=== PATIENT | female | born 1940 | race Caucasian/White ===

== ENCOUNTER → 2024-09-14 10:10 | Outpatient (REF) | payer MEDICARE, OTHER, SELFPAY | LOC: HWRCS 10:10 | PROVIDERS: ATTENDING PHYSICIAN Internal Medicine Cardiovascular Disease; FAMILY PHYSICIAN Family Medicine | DX: I49.3 Ventricular premature depolarization (principal) | CPT/HCPCS: 93306 ==

== ENCOUNTER 2024-09-17 22:09 | Inpatient (IN) | payer MEDICARE, OTHER, SELFPAY ==
[2024-09-17] VITALS (8 sets, daily range): BP systolic 99–145; BP diastolic 70–104; BMI 22.3; BMI 21.4
[2024-09-17 17:43] LABS: % Basophils 0.6 % (0-2); % Immature Granulocytes 0.4 % (0-0.5); % Lymphocytes 24.5 % (20.5-51.1); % Monocytes 6.3 % (1.7-9.3); % Neutrophils 67.2 % (42.2-75.2); Absolute Basophils 0.1 10^3/uL (0-0.2); Absolute Eosinophils 0.1 10^3/uL (0-0.7); Absolute Lymphocytes 2.4 10^3/uL (1.2-3.4); Absolute Monocytes 0.6 10^3/uL (0.1-0.6); Absolute Neutrophils 6.6 10^3/uL (1.4-6.5); Mean Corp Hgb Conc. 33.3 g/dL (33.0-37.0); Mean Corpuscular Hgb 32.2 pg (27.0-31.0); Mean Corpuscular Volume 96.5 fL (81.0-99.0); Nucleated Red Blood Cells % 0 %; Platelet Count 283 10^3/uL (130-400); Red Blood Cell Count 4.04 10^6/uL (4.20-5.40); White Blood Cell Count 9.8 10^3/uL (4.8-10.8)
[2024-09-17 17:48] LABS: ALT (SGPT) 24 U/L (0-35); AST (SGOT) 24 U/L (14-36); Albumin 4.8 g/dl (3.5-5.0); Alkaline Phosphatase 68 U/L (38-126); Blood Urea Nitrogen 44 mg/dl (7-17); Calcium 9.6 mg/dl (8.4-10.2); Carbon Dioxide 26 mmol/L (22-30); Chloride 99 mmol/L (98-107); Glucose 107 mg/dl (70-99); Potassium 4.6 mmol/L (3.5-5.1); Sodium 138 mmol/L (135-145); Total Bilirubin 1.4 mg/dl (0.2-1.3); Total Protein 6.9 g/dl (6.3-8.2); eGFR 44.36
--- NOTE | 2024-09-17 18:10 | ED.GENMED ---
History of Present Illness
General
Chief Complaint: Breathing Problem
Source: patient and spouse
Exam Limitations: none
Time Seen by Provider: 09/17/24 17:57
Nursing documentation reviewed up to this point in time: agreed with
History of Present Illness
History of Present Illness:
84-year-old female presents emergency room complaining of shortness of breath worse over the past 2 days. She has a history of COPD. She denies a history of atrial fibrillation.
Past History
Past History
ED Past Medical History: COPD and Other (Mitral valve prolapse)
ED Past Surgical History: Cardiac (Mitral valve surgery) and Orthopedic (Right hip)
Social History
Tobacco: Non-smoker
Alcohol: None
Drug: None
Personal:
Living: with family
Employment: Retired
Review of Systems
Review of Systems
Allergies reviewed?: Yes
All Other Systems: Not applicable
Constitutional: Reports no symptoms
EENT: Reports no symptoms
Respiratory: Reports cough and trouble breathing
Cardiac: Reports no symptoms; Denies chest pain
ABD/GI: Reports no symptoms
: Reports no symptoms
Musculoskeletal: Reports no symptoms
Skin: Reports no symptoms
Neurological: Reports no symptoms
Endocrine: Reports no symptoms
Hematologic/Lymphatic: Reports no symptoms
Psychiatric: Reports no symptoms
Phy Exam
Physical Exam
Physical Exam:
Physical Exam
General: Afebrile
Neck: supple. no meningeal signs. normal posterior pharynx
Heart: s1/s2 tachycardia, no murmur. equal radial
pulses.
HEENT: Pupils equal round reactive to light, EOMI
Lungs: Moderate respiratory distress. Decreased breath sounds bilaterally
Abdomen: normal bowel sounds. not tender. no CVAT
Neuro: alert and oriented. no focal neurological deficits cranial nerves II through XII intact
Skin: no rash
Psychiatric: well kept. interactive and cooperative
Extremities: no edema. no calf tenderness. negative homans. good distal pulses
Scores
Heart Failure Risk
Heart Failure Risk Score: Yes
History of Stroke or TIA: No
History of intubation for respiratory distress: No
Heart rate on ED arrival >/= 110: Yes
SaO2 <90% on arrival on room air: No
HR >/=110 during 3min walk test (or too ill to perform test): Yes
ECG has acute ischemic changes: No
Urea >/=12mmol/L (BUN 33.6mg/dL): Yes
Serum CO2>/=35mmol/L: No
Troponin I or T elevated to CO Level (0.4mg/dL): No
NT-proBNP >/=5,000ng/L (5,000pg/ml): Yes
HF Risk Score: 4
Admission Status: HIGH RISK 26.1% Consider SNF treatment or admission to hospital
Course
Orders/Labs/Results
Orders:
Orders
09/17/24 17:17
Electrocardiogram (*1) Urgent
Reason for Study: Shortness of Breath
EKG- Treatment ONCE
09/17/24 17:21
Complete Blood Count/With Diff Urgent
Comprehensive Metabolic Panel Urgent
09/17/24 18:07
Diltiazem 125 mg/125 ml Nss [Cardizem] 125 mg in 125 ml IV NOW
Initial dose in mg/hr, then titrate:: 5
Titrate to keep:: Heart rate 80-100 bpm
Titrate by mg/hr:: 5 mg/hr
Frequency of titrations (minutes):: 15
Maximum dose in mg/hr:: 15
Diltiazem HCl [Cardizem] 5 mg IV NOW STA
Ipratropium/Albuterol Sulfate [Duoneb] 3 ml INH R NOW STA
CR Chest Portable - 1 View Urgent
Comment:
Reason For Exam: short of breath
Reason Study Needs to be Portable: Patient Unstable
09/17/24 18:24
NT-proBNP Urgent
Troponin I Urgent
09/17/24 20:13
Dexamethasone Sod Phosphate [Decadron] 10 mg IV NOW STA
Furosemide [Lasix] 40 mg IV NOW STA
09/17/24 21:33
Admit/Transfer Patient As Directed
Co-Sign Provider:
Level of Care: Inpatient admission
Assign to:: IVU
Physician / Group: Roland Rocha
Diagnosis: A-fib RVR/Heart failure
Reason for Hospitalization: A-fib RVR/Heart failure
Expected length of stay greater than two midnights?: Yes
ELOS- Estimated Length of Stay in days: 3
I certify the patient meets the requirements for IP care: Yes
PRN Pain Medication Management As Directed
May give lesser potent ordered pain med per pt: Yes
preference::
Protocol:: Medication orders for pain may be administered in a
manner that supports deferring to patient preference
when the pt is:
- Requesting an ordered lesser potent pain medication.
Least to most potent pain medications are defined
as: acetaminophen < NSAID < tramadol < opioids
(morphine, oxycodone, hydromorphone).
- Requesting a lesser dose of the same medication IF
ORDERED.
- Requesting a less intrusive route of administration
if both routes are prescribed by the provider (PO <
IV).
09/17/24 21:35
Code Status As Directed
Resuscitation Status: Do not resuscitate
Reached after discussion with pt or family/Healthcare POA: Yes
Decision communicated with: patient
DNR Bracelet Application ONCE
09/17/24 21:55
COVID-19 Antigen Urgent
Source: Nasal Swab
Influenza A+B Rapid Molecular Urgent
YANY Source: Nasal Swab
Specimen Description:
Abnormal Lab Results
09/17/24
17:21
RBC 4.04 L 10^6/uL
(4.20-5.40)
MCH 32.2 H pg
(27.0-31.0)
MPV 11.0 H fL
(7.4-10.4)
Absolute Neuts (auto) 6.6 H 10^3/uL
(1.4-6.5)
BUN 44 H mg/dl
(7-17)
Creatinine 1.2 H mg/dL
(0.6-1.0)
Glucose 107 H mg/dl
(70-99)
Total Bilirubin 1.4 H mg/dl
(0.2-1.3)
09/17/24 17:21
09/17/24 17:21
Vital Signs
Initial and Last Documented VS:
Initial Vital Signs
Temp Pulse Resp BP Pulse Ox
97.5 F 74 16 142/70 97
09/17/24 17:11 09/17/24 17:11 09/17/24 17:11 09/17/24 17:11 09/17/24 17:11
Last Documented Vital Signs
Temp Pulse Resp BP Pulse Ox
97.5 F 86 22 119/84 96
09/17/24 17:11 09/17/24 22:15 09/17/24 22:15 09/17/24 22:00 09/17/24 21:45
MDM/Problems Addressed
Differential Diagnosis Includes:
Pneumonia, CHF, COPD
MDM/Problems Addressed:
84-year-old female with CHF and COPD exacerbation. IV Lasix, IV Decadron and DuoNebs given, rapid A-fib. Admit to hospitalist.
Chronic conditions affecting care: Cardiomyopathy, Arrhythmia and COPD
Acute Exacerbation and/or Progression of Chronic Illness: Cardiomyopathy, Arrhythmia and COPD
*Radiology
Radiology exam reviewed: radiology read reviewed (Chest x-ray cardiomegaly, no infiltrate)
*Pulse Oximetry
Patient hypoxic: no
*EKG
Interpreted by ED Provider?: Yes
EKG Intrepretation Date: 09/17/24
EKG Intrepretation Time: 17:27
Interpretation: abnormal
Comparison EKG: changes noted
Heart Rate: 122
Rate: tachycardiac
Rhythm: a-fib
[place]: left axis deviation
Interval: normal interval
QRS Pattern: normal QRS
Ischemia: no ischemia
*Chief Privacy Officer Interpretation
Rate: tachycardiac
Interpretation: abnormal
Heart Rate: 120
Rhythm: a-fib
*Critical Care Note
Total Time (30-74mins, 75-104mins- exclusive of procedures): 30
comment:
Critical care statement: A total of 30 minutes of critical care time was provided for this patient. This includes management of unstable vital signs, evaluation of the patient at bedside, reviewing the patient's pertinent medical records, discussion
with consultants, review of old EKGs and review of pertinent medical records. This time with separate from time utilized to perform the aforementioned documented procedures
ED Attending Note
-
Portions of this chart may have been created with voice recognition software.� Occasional wrong word or��sound alike� substitutions may have occurred due to the inherent limitations of voice recognition software.
Discharge Plan
Departure
Patient Disposition: Admit
Date of Disposition: 09/17/24
Time of Disposition: 20:14
Admit to: IMU
Presentation/result/management discussed w/ accepting MD/DO: Hospitalist
Patient with high blood pressure during this ER visit?: No
Condition: Good
Discharge Problem:
Acute exacerbation of CHF (congestive heart failure), Acute exacerbation of chronic obstructive pulmonary disease, Atrial fibrillation with rapid ventricular response
Interventions
Interventions:
*Risk Screen - Suicide Last Done: 09/17/24 17:17
*General Assessment Last Done: 09/17/24 18:17
*Neglect/Abuse Screening Last Done: 09/17/24 17:17
ED- Fall Risk Assessment Last Done: 09/17/24 18:17
*ED COVID-19 Vaccine History Last Done: 09/17/24 17:16
ED- Cardiac Assessment Last Done: 09/17/24 18:17
ED- Pulmonary Assessment Last Done: 09/17/24 18:17
[2024-09-17] MEDS: DUONEB 3 ML INH (18:27)
[2024-09-17] MEDS: CARDIZEM 5 MG IV (18:27)
[2024-09-17] MEDS: CARDIZEM 125 IV (18:27)
[2024-09-17 19:47] LABS: NT-proBNP 6300 pg/ml
[2024-09-17] MEDS: DECADRON 10 MG IV (20:36)
[2024-09-17] MEDS: LASIX 40 MG IV (20:37)
--- NOTE | 2024-09-17 20:40 | HPS.HSE ---
Family Physician
-
Family Physician: Daniel Mccormack
Chief Complaint
-
shortness of breath
History of Present Illness
Patient is a 84-year-old female with past medical history significant for COPD, moderate pulmonary hypertension, hypertension and mitral valve prolapse who presented to [place] ED for evaluation increased shortness of breath with exertion.
Patient states over past 2 days she has noticed increased shortness of breath when reaching up to cabinet or bending over. Generally resolves with rest. She reports new dry cough that has been intermittent. Patient reports intermittent bilateral
lower extremity edema that resolves with furosemide. She states she was on furosemide in past for same thing and doctor prescribed again just recently for edema and she has taken for a few days and edma now resolved. Patient denies any fever,
chills, chest pain, palpitations, nausea, vomiting, constipation, diarrhea or urinary symptoms.
Medical History
Past Medical History
Past Medical History: Reports Other
Additional Past Medical History:
COPD
moderate pulmonary hypertension
hypertension
mitral valve prolapse
Past Surgical History: Reports Other
Additional Past Surgical History:
Mitral valve repair
right hip
Social History
Tobacco: Former Smoker (1 pack per week for approximately 45 years, 5 pack year history)
Alcohol: Daily (wine nightly)
Drug: None
Personal:
Living: With Family
Employment: Retired
Family History
Family History: Not pertinent
Allergies / Home Medications
Allergies reflects when Allergies were last updated in [email or web address].
Home Medications with original date entered in [email or web address]
Allergy/Medication List:
Allergies
Allergy/AdvReac Type Severity Reaction Status Date / Time
No Known Allergies Allergy Verified 04/21/22 09:12
Home Medications
azithromycin 250 mg tablet 250 mg PO MOWEFR 03/02/22
furosemide 20 mg tablet 20 mg PO DAILY 03/02/22
albuterol sulfate 90 mcg/actuation aerosol inhaler 2 inh inhalation R Q6HPRN PRN sob 04/21/22
fluticasone propionate 50 mcg/actuation nasal spray,suspension 1 spray intranasal DAILY PRN nasal congestion 04/21/22
ipratropium 0.5 mg-albuterol 3 mg (2.5 mg base)/3 mL nebulization soln 3 ml inhalation R BID 04/21/22
aspirin 81 mg chewable tablet 81 mg PO DAILY 09/17/24
budesonide 0.5 mg/2 mL suspension for nebulization 0.5 mg inhalation R BID 09/17/24
calcium carbonate 500 mg PO DAILY 09/17/24
fluticasone furoate 200 mcg-vilanterol 25 mcg/dose inhalation powder (Breo Ellipta) 1 inh inhalation R DAILY@1200 09/17/24
losartan 50 mg tablet 50 mg PO DAILY 09/17/24
potassium 99 mg tablet 50 mg PO DAILY 09/17/24
Review of Systems
-
History Source: Patient
Constitutional: Reports No Symptoms
EENT: Reports No Symptoms
Respiratory: Reports Cough (dry intermittent) and Trouble Breathing (shortness of breath)
Cardiac: Reports No Symptoms
Abdomen/GI: Reports No Symptoms
: Reports No Symptoms
Musculoskeletal: Reports No Symptoms
Skin: Reports No Symptoms
Neurological: Reports No Symptoms
Endocrine: Reports No Symptoms
Hematologic/Lymphatic: Reports No Symptoms
Psych: Reports No Symptoms
Physical Exam
Vital Signs
Vital Signs
Temp Pulse Resp BP Pulse Ox
97.5 F 135 20 141/104 97
09/17/24 17:11 09/17/24 18:00 09/17/24 18:00 09/17/24 17:44 09/17/24 18:17
Physical Exam
General: Well Developed, Well Nourished, No Apparent Distress, Comfortable and Conversant
HEENT: NormoCephalic, Moist mucous membranes, Atraumatic, [place] Conjunctivae, Nose Appears Normal and Ears Appear Normal
Respiratory: Clear and Decreased Breath Sounds (throughout all ren)
Cardiac: S1/S2, Irregular Rhythm and Tachycardia; No Murmur, Rub or Gallop
Breast: Deferred by me
GI: Soft, Non Tender, Non Distended and Normal Bowel Sounds; No Organomegaly
Rectal: Deferred by Provider
Genito-urinary: Deferred by me
Musculoskeletal: No Clubbing, No Cyanosis and No Edema
Skin: Warm and IV/Catheter Site; No Rash
Neuro: Awake, Alert, AO x 3 and Nonfocal/grossly intact
Hematologic/Lymphatic: No Lymphadenopathy
Psych: Calm and Intact Judgment/Insight
Laboratory Results
-
09/17/24 17:21
09/17/24 17:21
Laboratory Results
Total Bilirubin 1.4 mg/dl (0.2-1.3) H 09/17/24 17:21
AST 24 U/L (14-36) 09/17/24 17:21
ALT 24 U/L (0-35) 09/17/24 17:21
Alkaline Phosphatase 68 U/L (38-126) 09/17/24 17:21
Troponin I 0.020 ng/ml 09/17/24 18:24
Data Reviewed
-
Diagnostic Radiology: Report Reviewed by me (CXR: No acute disease of the chest. Moderate cardiomegaly. Progressed Findings suggesting COPD. New Possible clip projected over the mid left cardiac shadow versus a radiopaque foreign body within the
patient. New.)
Medical Tests (Nuc Med, Echo, EKG etc): Report Reviewed by me (EKG: ATRIAL FIBRILLATION WITH RAPID VENTRICULAR RESPONSE WITH PREMATURE VENTRICULAR OR ABERRANTLY CONDUCTED COMPLEXES LEFT AXIS DEVIATION ABNORMAL ECG WHEN COMPARED WITH ECG OF
21-APR-2022 09:23, ATRIAL FIBRILLATION HAS REPLACED SINUS RHYTHM VENT. RATE HAS INCREASED BY [address] NO LONGER DEPRESSED)
Lab Data: Labs Reviewed by me (BUN 44, Creat 1.2, BNP 6300)
Impression/Plan
-
IMPRESSION/PLAN:
#A-fib with RVR
new onset
c/o shortness of breath with exertion especially if reaching up into cabinets or bending down, resolves with rest
EKG: ATRIAL FIBRILLATION WITH RAPID VENTRICULAR RESPONSE WITH PREMATURE VENTRICULAR
OR ABERRANTLY CONDUCTED COMPLEXES
LEFT AXIS DEVIATION
ABNORMAL ECG
WHEN COMPARED WITH ECG OF 21-APR-2022 09:23,
ATRIAL FIBRILLATION HAS REPLACED SINUS RHYTHM
VENT. RATE HAS INCREASED BY [address] NO LONGER DEPRESSED IN INFERIOR LEADS
- Admit to
- Consult Cardiology [facility]
- diltiazem gtt
- start Eliquis
- check Covid and Influenza
#Heart failure
BNP 6300
Echo (09/14/2024): Left ventricle: Normal size and function with an estimated ejection fraction of 50%
- continue furosemide
- consult cardiology
- daily weights
#COPD
#moderate pulmonary hypertension
c/o shortness of breath with exertion especially if reaching up into cabinets or bending down, resolves with rest
- continue albuterol, budesonide, breo, furosemide and DuoNeb PRN
#benign hypertension
- continue furosemide
- hold losartan in setting of ADAIR
#mitral valve prolapse
hx mitral valve repair
- continue aspirin
Code Status: DNR
DVT Prophylaxis: Eliquis
--- NOTE | 2024-09-17 21:41 | W.PN.UPDATE ---
Addendum entered and electronically signed by Roland Rocha MD 09/17/24 23:20:
Decided to continue Dexamethasone 4 mg q12.
Addendum entered and electronically signed by Roland Rocha MD 09/17/24 21:42:
Check COVID and flu.
Original Note:
Update Note
Progress Note Update
This is an addendum to the H&P written by Marcelle Mesa on 09/17/2024. Patient seen and examined independently with MUSIC WRITER.
84-year-old female past medical history of COPD, mitral valve prolapse status post mitral surgery, presenting with shortness of breath and dry cough worse when she bends down or lifts something up. No chest pain or dizziness. No upper respiratory
symptoms.
Patient arrived in new onset atrial fibrillation with RVR with heart rate up to 130s. Diminished air entry on examination. No wheezing or crackles.
Labs showed BNP of 6000. Creatinine 1.2 chest x-ray shows moderate cardiomegaly which is progressed. Patient had echocardiogram yesterday which showed EF of 50%, severe biatrial dilation, moderate to severe tricuspid regurgitation.
Exertional dyspnea seems more likely related to CHF exacerbation/A-fib although not overtly volume overloaded. She was started on Cardizem drip for A-fib. Given 40 IV Lasix. Will also start Eliquis. Cardiology consulted.
She was also given dexamethasone and DuoNebs for COPD exacerbation although not entirely convinced she is in COPD exacerbation. Will hold off on further steroids. Continue nebs.
Hold losartan while on Cardizem drip.
[2024-09-17 22:18] LABS: COVID-19 Antigen Negative (Negative)
--- NOTE | 2024-09-17 23:00 | PTCARENOTE ---
Patient transported to IMU via stretcher. Received verbal report over the phone from ED RN. Pt ambulated from the stretcher to the bed. Admission and assessment completed see worklist.
[2024-09-18] VITALS (14 sets, daily range): BP systolic 91–137; BP diastolic 62–89; PULSE 88–93; O2SAT 95–96; BMI 21.4
[2024-09-18 00:12] LABS: Magnesium 1.9 mg/dl (1.6-2.3)
--- NOTE | 2024-09-18 03:54 | PTCARENOTE ---
Pt AAOx3, [place]. A-fib w/ PAC's on tele. ReynaInvacio gtt running see DEC. HR 80's-90's. Pt on room air but is tachypneic and complains of SOB when ambulating. Noted bilateral lower extremity scabs otherwise skin is intact. Pt makes needs known and rings
appropriately, call abdul is within reach.
[2024-09-18 05:53] LABS: Hematocrit 38.5 % (37.0-47.0); Hemoglobin 13.1 g/dL (12.0-16.0); Mean Corpuscular Hgb 32.1 pg (27.0-31.0); Mean Corpuscular Volume 94.4 fL (81.0-99.0); Mean Platelet Volume 10.8 fL (7.4-10.4); Platelet Count 243 10^3/uL (130-400); Red Blood Cell Count 4.08 10^6/uL (4.20-5.40); Red Cell Dist. Width 13.9 % (11.5-14.5); White Blood Cell Count 5.3 10^3/uL (4.8-10.8)
[2024-09-18 06:13] LABS: Blood Urea Nitrogen 44 mg/dl (7-17); Calcium 9.6 mg/dl (8.4-10.2); Carbon Dioxide 26 mmol/L (22-30); Chloride 100 mmol/L (98-107); Estimated Creatinine Clearance 28 ml/min; Glucose 156 mg/dl (70-99); HDL Cholesterol 74 mg/dl; LDL Cholesterol, Calculated 88 mg/dl; Potassium 4.9 mmol/L (3.5-5.1); Sodium 141 mmol/L (135-145); Total Cholesterol 177 mg/dl (50-199); Triglyceride 76 mg/dl (10-149); Very Low Density Lipoprotein 15 mg/dl (0-30); eGFR 55.21
[2024-09-18] MEDS: CARDIZEM 125 IV ×2 (06:29→18:56)
[2024-09-18 06:40] LABS: TSH Reflex To Free T4 0.81 uIU/ml (0.47-4.68)
[2024-09-18] MEDS: SYMBICORT 160/4.5 MCG INHALER 2 PUFF INH ×2 (07:43→19:20)
[2024-09-18] MEDS: DUONEB 3 ML INH ×2 (07:43→19:20)
[2024-09-18] MEDS: PULMICORT 0.5 MG INH ×2 (07:43→19:20)
--- NOTE | 2024-09-18 07:43 | CON.CAR ---
Addendum entered and electronically signed by Jeffrey Mckeon DO 09/18/24 13:19:
I saw and examined the patient.
The Perinatal Coordinator's note was reviewed and I agree with the note.
Comment:
Echo 09/14/24: EF 50%, severe biatrial dilatation, s/p MitraClip with at least moderate MR and mean mitral gradient 2 mmHg, no AI, mod to sev TR and PAP 51 mmHg
Plan:
Discussed Afib including rate control, rhythm control and stroke prophylaxis.
Cont IV Cardizem and transition to oral cardizem.
Discussed rhythm control and she is agreeable to NOVA/cv. If she has recurrent AFib, will have to consider AAD vs PVI. For now, with her underlying lung disease will hold off on considering Amiodarone at this time.
Patient agreeable to start anticoagulation with Eliquis 2.5 mg BID (age 84, Cre 1.0 and wt 48 kg). Will stop aspirin to reduce bleeding risk.
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
Recent echo reviewed and EF is preserved and MV clip stable.
Cont IV lasix diuresis for HF.
HPI: Patient came to [facility] yesterday with ongoing SOB that was unresponsive to increased doses of Lasix as an outpatient and cardiology is now consulted. Patient was seen by Dr. Pearson in the office 08/28/24 and complained of SOB and SCHILLING, ECG was SR
with frequent PVCs and patient was ordered an echo. Patient was put on a regimen of Lasix 20 mg daily for 3 days without improvement. Patient then told to take Lasix 40 mg daily for 2 days and then 20 mg daily thereafter and again had no
improvement. Patient tried taking Lasix 40 mg daily over the weekend and again had no improvement. Denies palpitations. No chest pain. Came to [facility] due to increased SCHILLING to the point of SOB walking between rooms in her home. Patient was
found to be in rapid Afib in the ER and was started on Cardizem gtt.
Original Note:
Consultation
Consultation Request
Date/Time Consultation Requested: 09/17/24 at 2258
Date/Time Consultation Performed: 09/18/24 at 0743
Requesting Provider: Dr. Heller
Performing Provider: Dr. Rios
Reason for Consultation: Rapid Afib
Medical History
-
History of Present Illness:
Patient came to [facility] yesterday with ongoing SOB that was unresponsive to increased doses of Lasix as an outpatient and cardiology is now consulted. Patient was seen by Dr. Pearson in the office 08/28/24 and complained of SOB and SCHILLING, ECG was SR with
frequent PVCs and patient was ordered an echo. Patient was put on a regimen of Lasix 20 mg daily for 3 days without improvement. Patient then told to take Lasix 40 mg daily for 2 days and then 20 mg daily thereafter and again had no improvement.
Patient tried taking Lasix 40 mg daily over the and again had no improvement. Denies palpitations. No chest pain. Came to [facility] due to increased SCHILLING to the point of SOB walking between rooms in her home. Patient was found to be
in rapid Afib in the ER and was started on Cardizem gtt.
PMH:
Moderate MR s/p MitraClip at [place] 10/2022
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
COPD with moderate PHTN
HTN
Past Medical History
Past Medical History: Other (in HPI)
Past Surgical History: Cardiac (MitraClip at [place] 10/2022) and Orthopedic
Social History
Tobacco: Former Smoker
Alcohol: Daily
Drug: None
Personal:
Living: With Family
Family History
Family History: Cancer and Diabetes
Allergies / Home Medications
Allergy/AdvReac Type Severity Reaction Status Date / Time
No Known Allergies Allergy Verified 04/21/22 09:12
�Medication �Instructions �Recorded �Confirmed �Type
azithromycin 250 mg tablet 250 mg PO MOWEFR 03/02/22 09/17/24 History
furosemide 20 mg tablet 20 mg PO DAILY 03/02/22 09/17/24 History
albuterol sulfate 90 mcg/actuation 2 inh inhalation R Q6HPRN PRN sob 04/21/22 09/17/24 History
aerosol inhaler
fluticasone propionate 50 1 spray intranasal DAILY PRN nasal 04/21/22 09/17/24 History
mcg/actuation nasal congestion
spray,suspension
ipratropium 0.5 mg-albuterol 3 mg 3 ml inhalation R BID 04/21/22 09/17/24 History
(2.5 mg base)/3 mL nebulization
soln
aspirin 81 mg chewable tablet 81 mg PO DAILY 09/17/24 09/17/24 History
budesonide 0.5 mg/2 mL suspension 0.5 mg inhalation R BID 09/17/24 09/17/24 History
for nebulization
calcium carbonate 500 mg PO DAILY 09/17/24 09/17/24 History
fluticasone furoate 200 1 inh inhalation R DAILY@1200 09/17/24 09/17/24 History
mcg-vilanterol 25 mcg/dose
inhalation powder (Breo Ellipta)
losartan 50 mg tablet 50 mg PO DAILY 09/17/24 09/17/24 History
potassium 99 mg tablet 50 mg PO DAILY 09/17/24 09/17/24 History
Review of Systems
-
History Source: Patient
All other systems: Negative unless noted
Physical Exam
Vital Signs
Temp Pulse Resp BP Pulse Ox
97.5 F 78 17 109/64 94
09/18/24 03:33 09/18/24 07:33 09/18/24 07:33 09/18/24 06:00 09/18/24 07:33
GEN: NAD. AAOx3, tremor
HEENT: EOMI, MMM
LUNGS: RA. CTA B/L, no wheezes or rales
CV: Reg, S1/S2, 3/6 ASM
ABD: soft, BS+, NT, ND
EXT: No clubbing, cyanosis, lesions or edema B/L
NEURO: Gross non-focal
SKIN: Warm, dry and pink. No rash
Lab Results
09/18/24 05:37
09/18/24 05:37
Troponin I 0.020 ng/ml 09/17/24 18:24
Nqe-G-Fmfqjzfksdo Pept 6300 pg/ml 09/17/24 18:24
Impression / Plan
-
PCP: Dr. Mccormack
Cardiology: Dr. BASSEM Pearson
Impression:
Admitted with SOB and new Afib 09/17/24
Acute HFpEF
Newly diagnosed Afib with RVR 09/17/24
New start to Eliquis OAC 09/18/24
Moderate MR s/p MitraClip at [place] 10/2022
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
COPD with moderate PHTN
HTN
Echo 09/14/24: EF 50%, severe biatrial dilatation, s/p MitraClip with at least moderate MR and mean mitral gradient 2 mmHg, no AI, mod to sev TR and PAP 51 mmHg
Plan:
-Patient came to [facility] yesterday with ongoing SOB that was unresponsive to increased doses of Lasix as an outpatient and cardiology is now consulted. Patient was seen by Dr. Pearson in the office 08/28/24 and complained of SOB and SCHILLING, ECG was SR with
frequent PVCs and patient was ordered an echo. Patient was put on a regimen of Lasix 20 mg daily for 3 days without improvement. Patient then told to take Lasix 40 mg daily for 2 days and then 20 mg daily thereafter and again had no improvement.
Patient tried taking Lasix 40 mg daily over the weekend and again had no improvement. Denies palpitations. No chest pain. Came to [facility] due to increased SCHILLING to the point of SOB walking between rooms in her home. Patient was found to be
in rapid Afib in the ER and was started on Cardizem gtt.
-Patient with newly diagnosed Afib in RVR. We talked about pathophysiology of Afib and how her h/o MR and MitraClip play a role.
-ECG and tele reviewed by me and patient remains in Afib with RVR despite Cardizem gtt overnight. Would continue Cardizem gtt for now and plan on NOVA/CV in AM. Explained NOVA/CV procedure and patient is agreeable. Patient previously had TEEs leading
up to MitraClip and no reported issues with that procedure.
-Discussed that pending success of CV could consider adding AAD in the form of amiodarone or possibly Tikosyn given h/o lung disease.
-Patient agreeable to start OAC. Eliquis 2.5 mg BID (age 84, Cre 1.0 and wt 48 kg) started 09/18/24 AM. Will stop aspirin.
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
-No need to repeat TTE.
-Suspect acute HF due to rapid Afib. pro-BNP 6300 which is her highest on record. Agree with Lasix 40 mg IV BID. Prior to 08/28/24 office visit the patient was not taking a loop diuretic on a daily basis, patient will likely need a daily Lasix dose
at d/c.
[2024-09-18] MEDS: LASIX 20 MG PO (08:22)
[2024-09-18] MEDS: LOW STRENGTH ASPIRIN 81 MG PO (08:22)
[2024-09-18] MEDS: ELIQUIS 2.5 MG PO ×2 (08:22→20:24)
[2024-09-18] MEDS: OSCAL CAL 500 500 MG PO (08:22)
[2024-09-18] MEDS: DECADRON 4 MG IV ×2 (08:23→20:24)
--- NOTE | 2024-09-18 08:36 | W.PN.HOSP.TC ---
Today's Communication/Plan
-
change lasix from PO to IV 40 mg BID
CM to avalos Elirachis
await cards input
Assessment / Plan
Assessment / Plan
pt is an 84 year old female
new onset atrial fibrillation with rapid response--pt cannot feel her heart racing--cont cardizem drip--echo just done 09/14/24, would not repeat--CM to bailey negron (started by admitting team)
acute exacerbation of HFpEF-- pro BNP 6300--cont IV lasix BID--await cards--daily weights, I/Os
COPD with mod pulm hypertension--follows with Dr. Roberts--consider pulm consult--for now cont IV decadron but low threshold to stop steroids--cont nebs
essential HTN--cont meds with holding parameters
ADAIR? -- doesn't quite meet strict criteria (1.2 to 1.0)--follow with diuresis
hx of mitral valve prolapse--s/p repair in past--cont asa
DVT proph--CM to [facility] Suman
code status -- DNR
Anticipated Discharge: > 48 hours
Subjective/Interval History
-
Date of Service: September 18, 2024
pt still SOB joe with moving around
Objective Data
-
Labs:
Laboratory Results
09/18/24
05:37
WBC 5.3
Hgb 13.1
Hct 38.5
Plt Count 243
Sodium 141
Potassium 4.9
Chloride 100
Carbon Dioxide 26
BUN 44 H
Creatinine 1.0
Glucose 156 H
Calcium 9.6
Vital Signs:
max temp for 24 hours
09/17/24
23:09
Temp 97.6 F
Vital Signs
Temp Pulse Resp BP Pulse Ox
97.5 F 98 17 105/79 94
09/18/24 03:33 09/18/24 08:22 09/18/24 07:33 09/18/24 08:22 09/18/24 07:33
I&O
09/17/24 09/18/24 09/19/24
06:59 06:59 06:59
Output Total 230 / 230
Balance -230 / -230
Review of Systems
-
All other systems: Reviewed and negative
Respiratory: Reports Trouble Breathing
Cardiac: Denies Palpitations (cannot feel heart racing)
Physical Exam
-
General: Well Developed, Well Nourished and No Apparent Distress
HEENT: Normocephalic and Atraumatic; Negative Oxygen
Respiratory: Decreased Breath Sounds
Cardiac: Irregular Rhythm
GI: Soft, Nontender, Nondistended and Normal Bowel Sounds
Musculoskeletal: No Clubbing, No Cyanosis and No Edema
Skin: Warm
Neuro: Awake
Psych: Calm
--- NOTE | 2024-09-18 10:00 | PTCARENOTE ---
Assumed care of patient this morning with earl Foote RN. Now report given to JADE Hewitt.
[2024-09-18] MEDS: LASIX 20 MG IV (10:33)
--- NOTE | 2024-09-18 10:48 | CM ---
Patient seen at bedside. Patient states that she lives with her in [place]. Patient has a first floor set up. Patient PCP is Dr Mccormack and she uses the [facility] in [place]. Patient stated that she has a nebulizer at home and that she has
not had any VN or DME since Hip replacement in 2011. Patient plan is for discharge home with no needs. CM will continue to follow for discharge planning needs.
Plan; home with Vn vs home with no needs.
--- NOTE | 2024-09-18 10:58 | PTCARENOTE ---
patient remains on cardizem gtt @10 ml/hr. afib with HR 110s on the monitor. labored breathing and increased RR with ambulation. patient c/o RFA pain after INT removed. warm compress provided. family at bedside. cont to monitor
--- NOTE | 2024-09-18 14:29 | PTCARENOTE ---
Assumed care of pt upon tsf from IMU. Pt arrives on unit awake and alert, Ox3. VSS, CM shows AF 80-90's, POX 93-96% on RA. Cardizem infusing through Lfa at 10 mg/hr. Pt offers no c/o pain or discomfort. Plan for NOVA/CV in am.
[2024-09-18] MEDS: LASIX 40 MG IV (16:23)
--- NOTE | 2024-09-18 16:37 | CM ---
priced eliquis 2.5 mg BID at [facility] in [place], [place]- her copay is $212 for september (she is ion the [facility]ut hole).
[2024-09-18] MEDS: TYLENOL 650 MG PO (16:46)
[2024-09-18] MEDS: ROBITUSSIN 100 MG PO (20:58)
--- NOTE | 2024-09-18 23:48 | PTCARENOTE ---
Received patient at change of shift. Afib on the monitor, HR in the 80s. VSS. Cardizem infusing as per protocol, see DEC. Pt complains of frequent cough, PRN cough medicine administered as per DEC. Call abdul within reach.
[2024-09-19] VITALS (11 sets, daily range): BP systolic 107–146; BP diastolic 57–81; BMI 21.7
[2024-09-19 03:37] LABS: Hematocrit 34.5 % (37.0-47.0); Hemoglobin 12.2 g/dL (12.0-16.0); Mean Corp Hgb Conc. 35.4 g/dL (33.0-37.0); Mean Corpuscular Hgb 32.7 pg (27.0-31.0); Mean Corpuscular Volume 92.5 fL (81.0-99.0); Platelet Count 257 10^3/uL (130-400); Red Blood Cell Count 3.73 10^6/uL (4.20-5.40); Red Cell Dist. Width 13.9 % (11.5-14.5); White Blood Cell Count 11.8 10^3/uL (4.8-10.8)
[2024-09-19 04:06] LABS: ALT (SGPT) 26 U/L (0-35); AST (SGOT) 26 U/L (14-36); Albumin 4.6 g/dl (3.5-5.0); Alkaline Phosphatase 63 U/L (38-126); Blood Urea Nitrogen 53 mg/dl (7-17); Calcium 9.3 mg/dl (8.4-10.2); Carbon Dioxide 21 mmol/L (22-30); Chloride 93 mmol/L (98-107); Estimated Creatinine Clearance 20 ml/min; Glucose 169 mg/dl (70-99); Magnesium 1.9 mg/dl (1.6-2.3); Potassium 4.5 mmol/L (3.5-5.1); Sodium 133 mmol/L (135-145); Total Bilirubin 1.9 mg/dl (0.2-1.3); Total Protein 6.7 g/dl (6.3-8.2); eGFR 36.87
[2024-09-19] MEDS: PULMICORT 0.5 MG INH ×2 (07:37→19:35)
[2024-09-19] MEDS: DUONEB 3 ML INH ×2 (07:37→19:35)
[2024-09-19] MEDS: SYMBICORT 160/4.5 MCG INHALER 2 PUFF INH ×2 (07:37→19:35)
--- NOTE | 2024-09-19 07:38 | W.PN.CARDCBS ---
Addendum entered and electronically signed by Kennedy Honeycutt MD 09/19/24 10:08:
I saw and examined the patient.
The EDITORIAL DIRECTOR or PA's note was reviewed and I agree with the note.
Comment: General: Well developed, well nourished in NAD.
Neck: Supple, no JVD, HJR, carotids +2 B/L, no bruits bilaterally.
Heart: Non displaced PMI, irregular, no murmurs, No S3, S4, no rubs.
Lungs: Scattered rhonchi
Abdomen: Normal bowel sounds, soft, non-tender, non-distended.
Extremities: No clubbing, cyanosis or edema bilaterally.
Neuro: Grossly nonfocal, awake, alert and oriented x3.
For NOVA/cardioversion later today. Hold Lasix and losartan with renal insufficiency. Consider change to oral Cardizem after cardioversion.
Original Note:
Today's Communication / Plan
-
NOVA/CV today
Hold Lasix and losartan with ADAIR, follow up BMP in AM
Likely d/c to home tomorrow if Cre improved
Impression / Plan
-
PCP: Dr. Mccormack
Cardiology: Dr. BASSEM Pearson
Impression:
Admitted with SOB and new Afib 09/17/24
Acute HFpEF
Newly diagnosed Afib with RVR 09/17/24
New start to Eliquis OAC 09/18/24
Moderate MR s/p MitraClip at [place] 10/2022
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
COPD with moderate PHTN
HTN
ADAIR
Echo 09/14/24: EF 50%, severe biatrial dilatation, s/p MitraClip with at least moderate MR and mean mitral gradient 2 mmHg, no AI, mod to sev TR and PAP 51 mmHg
Plan:
-Tele reviewed by me and remains in Afib from overnight despite Cardizem gtt. Will move forward with NOVA/CV 09/19/24
-New to Eliquis 2.5 mg BID (age 84, Cre 1.0 and wt 48 kg) started 09/18/24 AM. Outpatient dose of aspirin stopped.
-Pending success of CV could consider adding AAD in the form of amiodarone, but concerned about lung disease or possibly Tikosyn, but concerned about chronic azithromycin
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
-No need to repeat TTE.
-Weight is down 3 lbs from admission. Patient was initially ordered Lasix 40 mg IV BID, but currently no dose ordered. Eventually restart a PO dose of Lasix at time of d/c.
-ADAIR with Cre up to 1.4 by labs 09/19/24. Lasix now on hold. Outpatient dose of losartan 50 mg daily on hold.
-Patient follows with Dr. Roberts and is chronically on azithromycin and inhalers. Decadron 4 mg IV q 12 hours ordered now
HPI: Patient came to [facility] yesterday with ongoing SOB that was unresponsive to increased doses of Lasix as an outpatient and cardiology is now consulted. Patient was seen by Dr. Pearson in the office 08/28/24 and complained of SOB and SCHILLING, ECG was SR
with frequent PVCs and patient was ordered an echo. Patient was put on a regimen of Lasix 20 mg daily for 3 days without improvement. Patient then told to take Lasix 40 mg daily for 2 days and then 20 mg daily thereafter and again had no
improvement. Patient tried taking Lasix 40 mg daily over the weekend and again had no improvement. Denies palpitations. No chest pain. Came to [facility] due to increased SCHILLING to the point of SOB walking between rooms in her home. Patient was
found to be in rapid Afib in the ER and was started on Cardizem gtt.
Progress Note - Golf Caddy
Subjective
Date of Service: September 19, 2024
No palpitations, less SOB
Objective
Labs:
09/19/24 03:21
09/19/24 03:21
Labs
Hgb 12.2 g/dL (12.0-16.0) 09/19/24 03:21
Hct 34.5 % (37.0-47.0) L 09/19/24 03:21
Plt Count 257 10^3/uL (130-400) 09/19/24 03:21
Sodium 133 mmol/L (135-145) L D 09/19/24 03:21
Potassium 4.5 mmol/L (3.5-5.1) 09/19/24 03:21
BUN 53 mg/dl (7-17) H 09/19/24 03:21
Creatinine 1.4 mg/dL (0.6-1.0) H 09/19/24 03:21
Glucose 169 mg/dl (70-99) H 09/19/24 03:21
Troponins
09/17/24
18:24
Troponin I 0.020
Vital Signs and I&O:
Vital Signs
Temp Pulse Resp BP Pulse Ox
97.9 F 91 20 146/73 94
09/19/24 03:23 09/19/24 03:12 09/19/24 03:23 09/19/24 03:12 09/19/24 03:23
Vital Signs
Temp Pulse Resp BP Pulse Ox
97.9 F 91 20 146/73 94
09/19/24 03:23 09/19/24 03:12 09/19/24 03:23 09/19/24 03:12 09/19/24 03:23
Intake & Output
09/17/24 09/18/24 09/19/24 09/20/24
06:59 06:59 06:59 06:59
Intake Total 120 / 120
Output Total 230 / 230 175 / 175
Balance -230 / -230 -55 / -55
Physical Exam
Physical Exam
GEN: AAOx3, tremor
HEENT: EOMI, MMM
LUNGS: RA. No audible wheeze
CV: Reg, S1/S2, 3/6 ASM
ABD: ND
EXT: No edema B/L
NEURO: Gross non-focal
SKIN: No rash
--- NOTE | 2024-09-19 08:16 | W.PN.HOSP.TC ---
Today's Communication/Plan
-
for NOVA CV today
Assessment / Plan
Assessment / Plan
pt is an 84 year old female
new onset atrial fibrillation with rapid response--pt cannot feel her heart racing--cont cardizem drip--echo just done 09/14/24, would not repeat--CM to [facility] negron (started by admitting team)--plan for cardioversion today
acute exacerbation of HFpEF-- pro BNP 6300--stop IV lasix BID since creat increased--apprec cards--daily weights, I/Os
ADAIR --possibly due to overdiuresis--hold lasix--hold IVF for now--follow creat
COPD with mod pulm hypertension--follows with Dr. Roberts--consider pulm consult if CV does not improve symptoms--for now cont IV decadron but low threshold to stop steroids--cont nebs
essential HTN--cont meds with holding parameters
hx of mitral valve prolapse--s/p repair in past--cont asa
DVT proph--CM to [facility]
code status -- DNR
Anticipated Discharge: > 48 hours
Subjective/Interval History
-
Date of Service: September 19, 2024
pt still SOB--plan for CV per pt
Objective Data
-
Labs:
Laboratory Results
09/19/24
03:21
WBC 11.8 H
Hgb 12.2
Hct 34.5 L
Plt Count 257
Sodium 133 L D
Potassium 4.5
Chloride 93 L
Carbon Dioxide 21 L
BUN 53 H
Creatinine 1.4 H
Glucose 169 H
Calcium 9.3
Total Bilirubin 1.9 H
AST 26
ALT 26
Alkaline Phosphatase 63
Vital Signs:
max temp for 24 hours
09/17/24
18:17 09/19/24
03:23 09/19/24
04:16
Temp 97.9 F
Actual Weight 50 kg 48.8 kg
Vital Signs
Temp Pulse Resp BP Pulse Ox
97.9 F 87 18 146/73 97
09/19/24 03:23 09/19/24 07:41 09/19/24 07:41 09/19/24 03:12 09/19/24 07:41
I&O
09/18/24 09/19/24 09/20/24
06:59 06:59 06:59
Intake Total 120 / 120
Output Total 230 / 230 175 / 175
Balance -230 / -230 -55 / -55
Review of Systems
-
All other systems: Reviewed and negative
Respiratory: Reports Trouble Breathing
Physical Exam
-
General: Well Developed, Well Nourished and No Apparent Distress
HEENT: Normocephalic and Atraumatic; Negative Oxygen
Respiratory: Clear to Auscultation; Negative Wheezes or Rhonchi
Cardiac: Irregular Rhythm
GI: Soft, Nontender, Nondistended and Normal Bowel Sounds
Musculoskeletal: No Clubbing, No Cyanosis and No Edema
Neuro: Awake and Alert
Psych: Calm
[2024-09-19] MEDS: OSCAL CAL 500 500 MG PO (08:28)
[2024-09-19] MEDS: CARDIZEM 125 IV (08:28)
[2024-09-19] MEDS: ELIQUIS 2.5 MG PO ×2 (08:28→20:18)
[2024-09-19] MEDS: DECADRON 4 MG IV ×2 (08:28→20:19)
[2024-09-19] MEDS: ZITHROMAX 250 MG PO (08:40)
--- NOTE | 2024-09-19 11:37 | ITS.CL.CARDI ---
Sustainability Director - Cardioversion
Cardioversion
Procedure Report:
Date of Procedure: 10/09.
Procedure: Cardioversion.
Indication: Symptomatic atrial fibrillation.
Performing Physician: Asia Penaloza MD
Technique: The patient was brought to the holding area. Signed informed consent was obtained. A time out was called and performed. The patient was sedated by a member of the anesthesia service. Anticoagulation status was reviewed and was
appropriate. NOVA was done and did not show any evidence of left atrial, right atrial, right atrial appendage or left atrial appendage thrombus. R-2 pads were placed anteriorly and posteriorly. A 200 J synchronized biphasic shock restored normal
sinus rhythm without significant bradycardia. There were no complications.
Conclusion: Uncomplicated cardioversion from atrial fibrillation to sinus rhythm.
Recommendation: Routine post cardioversion care. Continue fpc anticoagulation.
cc: Dr. Tangela Salguero
[2024-09-19] MEDS: CARDIZEM CD 120 MG PO (13:09)
--- NOTE | 2024-09-19 14:06 | PTCARENOTE ---
Rec'd pt post NOVA/CV. Tele- SR. 80-90s. VSS.
--- NOTE | 2024-09-19 14:37 | PTOTSP ---
SPEECH THERAPY SWALLOW EVALUATION:
Patient exhibits grossly functional oropharyngeal swallow function at this time; However, patient remains at risk for aspiration and related complications given shortness of breath, tachypnea, COPD, and self-reported increased rate of intake during
ingestion, along with choking episode with hamburger as noted day prior. Patient alert and oriented x4. No history of pneumonia at this time. Patient appears safe to continue Regular texture solids, thin liquids at this time, as patient educated
extensively on aspiration/COPD precautions and appears cognitively intact to be able to implement strategies independently. Pt observed implementing strategies during evaluation. Aspiration/COPD precautions include: Partial supervision with meals;
Cut solids into small pieces; Upright positioning; Small single sips/bites; Slow rate of intake; Reduce distractions when eating/drinking; Monitor for signs of aspiration; D/c oral diet if any decline in mental/respiratory status; Do not eat when
short of breath; Take breaks during meals. Should patient exhibit signs concerning for aspiration or related complications, recommend consider outpatient VSE to further assess swallow function at that time. ST to continue to follow at the acute care
level to ensure use of strategies. Patient verbally reported she understood recommendations.
RECOMMEND:
1) regular texture solids, thin liquids
2) Medications as best tolerated
3) Aspiration/COPD precautions include: Partial supervision with meals; Cut solids into small pieces; Upright positioning; Small single sips/bites; Slow rate of intake; Reduce distractions when eating/drinking; Monitor for signs of aspiration; D/c
oral diet if any decline in mental/respiratory status; Do not eat when short of breath; Take breaks during meals
4) Should patient exhibit signs concerning for aspiration or related complications, recommend consider outpatient VSE to further assess swallow function
5) ST to follow at the acute care level
--- NOTE | 2024-09-19 15:05 | CM ---
CM following for DC planning needs.
Reviewed initial clinical info.
Pt. resides in a private apartment w/ spouse. There are 2 [place].
Functionally, patient is indep. at baseline w/ ADLs, mobility without the use of any assisted device.
Anticipate DC to home once medically stable, without needs.
Will remain avail. for any needs that may arise.
[2024-09-19] MEDS: MAALOX 30 ML PO (18:22)
[2024-09-19] MEDS: ROBITUSSIN 100 MG PO (18:32)
[2024-09-20 03:46] VITALS: BP 123/69
[2024-09-20 03:51] VITALS: BMI 21.7
[2024-09-20 04:50] LABS: ALT (SGPT) 28 U/L (0-35); AST (SGOT) 30 U/L (14-36); Albumin 4.4 g/dl (3.5-5.0); Alkaline Phosphatase 57 U/L (38-126); Blood Urea Nitrogen 43 mg/dl (7-17); Calcium 9.6 mg/dl (8.4-10.2); Carbon Dioxide 25 mmol/L (22-30); Chloride 96 mmol/L (98-107); Estimated Creatinine Clearance 28 ml/min; Glucose 136 mg/dl (70-99); Hematocrit 35.4 % (37.0-47.0); Hemoglobin 12.4 g/dL (12.0-16.0); Magnesium 2.5 mg/dl (1.6-2.3); Mean Corpuscular Hgb 32.6 pg (27.0-31.0); Mean Corpuscular Volume 93.2 fL (81.0-99.0); Mean Platelet Volume 11.1 fL (7.4-10.4); Platelet Count 225 10^3/uL (130-400); Potassium 4.7 mmol/L (3.5-5.1); Red Cell Dist. Width 14.1 % (11.5-14.5); Sodium 133 mmol/L (135-145); Total Bilirubin 1.6 mg/dl (0.2-1.3); Total Protein 6.5 g/dl (6.3-8.2); White Blood Cell Count 12.4 10^3/uL (4.8-10.8); eGFR 55.21
--- NOTE | 2024-09-20 06:14 | PTCARENOTE ---
Pt NSR with PVCs and bigeminy, Dyspnea with minimal exertion, productive cough. Safety measures in place, call abdul in reach
[2024-09-20 07:12] VITALS: BP 139/66
[2024-09-20] MEDS: PULMICORT 0.5 MG INH (07:48)
[2024-09-20] MEDS: DUONEB 3 ML INH (07:48)
[2024-09-20] MEDS: SYMBICORT 160/4.5 MCG INHALER 2 PUFF INH (07:48)
--- NOTE | 2024-09-20 07:54 | W.PN.CARDCBS ---
Addendum entered and electronically signed by Kennedy Honeycutt MD 09/20/24 09:13:
I saw and examined the patient.
The PASSENGER INTERLINE CLERK or PA's note was reviewed and I agree with the note.
Comment: General: Well developed, well nourished in NAD.
Neck: Supple, no JVD, HJR, carotids +2 B/L, no bruits bilaterally.
Heart: Non displaced PMI, RRR, no murmurs, No S3, S4, no rubs.
Lungs: Scattered rhonchi and wheezes
Abdomen: Normal bowel sounds, soft, non-tender, non-distended.
Extremities: No clubbing, cyanosis or edema bilaterally.
Neuro: Grossly nonfocal, awake, alert and oriented x3.
Remains in sinus rhythm. Stable cardiology status for discharge. Discharge on Lasix 20 mg daily with repeat renal profile in 1 week.
Original Note:
Today's Communication / Plan
-
New to [facility] and Eliquis
Remains in SR
Lasix 20 mg daily at d/c
Cre better, lab slip on chart for 1 week
D/C to home
51 min face to face and chart prep including e-scribing meds and arranging for follow up
Impression / Plan
-
PCP: Dr. Mccormack
Cardiology: Dr. BASSEM Pearson
Impression:
Admitted with SOB and new Afib 09/17/24
Acute HFpEF
Newly diagnosed Afib with RVR 09/17/24
New start to Eliquis OAC 09/18/24
Moderate MR s/p MitraClip at [facility] 10/2022
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
COPD with moderate PHTN
HTN
ADAIR
Echo 09/14/24: EF 50%, severe biatrial dilatation, s/p MitraClip with at least moderate MR and mean mitral gradient 2 mmHg, no AI, mod to sev TR and PAP 51 mmHg
Plan:
-Cre has improved overnight and is down to 1.0 on 09/20/24
-Weight is stable at 107 lbs overnight. Patient was not taking a regular dose of Lasix at the time of her 08/28/24 office visit, but then with ongoing SOB she was placed on a few different Lasix regimens. Recommend Lasix 20 mg PO daily upon d/c and
BMP in 1 week.
-Restart outpatient dose of losartan 50 mg daily now
-New to [facility] for help with rate control of Afib and was not started on BB due to wheezing and underlying COPD
-EF preserved at 50%
-Remains in SR following NOVA/CV 09/19/24
-New to Eliquis 2.5 mg BID (age 84, Cre 1.0 and wt 48 kg) started 09/18/24 AM. Outpatient dose of aspirin stopped. Appreciate help of CM and determining cost and patient is currently in the donut hole, but should be able to use the 1 month free card
-Could consider adding AAD in the form of amiodarone, but concerned about lung disease or possibly Tikosyn, but concerned about chronic azithromycin
-Patient has a h/o CVA due to air embolus at the time of her initial attempt at MitraClip at [facility] in 08/2022, at that time she was treated with hyperbaric oxygen therapy and on reattempt at [facility] 10/2022 it was successful and without incident.
-Patient follows with Dr. Roberts and is chronically on azithromycin and inhalers. Decadron 4 mg IV q 12 hours ordered now
-D/C to home 09/20/24
HPI: Patient came to [facility] yesterday with ongoing SOB that was unresponsive to increased doses of Lasix as an outpatient and cardiology is now consulted. Patient was seen by Dr. Pearson in the office 08/28/24 and complained of SOB and SCHILLING, ECG was SR
with frequent PVCs and patient was ordered an echo. Patient was put on a regimen of Lasix 20 mg daily for 3 days without improvement. Patient then told to take Lasix 40 mg daily for 2 days and then 20 mg daily thereafter and again had no
improvement. Patient tried taking Lasix 40 mg daily over the weekend and again had no improvement. Denies palpitations. No chest pain. Came to [facility] due to increased SCHILLING to the point of SOB walking between rooms in her home. Patient was
found to be in rapid Afib in the ER and was started on Cardizem gtt.
Progress Note - Parts Facilitator
Subjective
Date of Service: September 20, 2024
She feels well, thinks cough is better today
Objective
Labs:
09/20/24 03:56
09/20/24 03:56
Labs
Hgb 12.4 g/dL (12.0-16.0) 09/20/24 03:56
Hct 35.4 % (37.0-47.0) L 09/20/24 03:56
Plt Count 225 10^3/uL (130-400) 09/20/24 03:56
Sodium 133 mmol/L (135-145) L 09/20/24 03:56
Potassium 4.7 mmol/L (3.5-5.1) 09/20/24 03:56
BUN 43 mg/dl (7-17) H 09/20/24 03:56
Creatinine 1.0 mg/dL (0.6-1.0) 09/20/24 03:56
Glucose 136 mg/dl (70-99) H 09/20/24 03:56
Troponins
09/17/24
18:24
Troponin I 0.020
Vital Signs and I&O:
Vital Signs
Temp Pulse Resp BP Pulse Ox
97.8 F 79 16 139/66 96
09/20/24 07:08 09/20/24 07:50 09/20/24 07:50 09/20/24 07:12 09/20/24 07:50
Vital Signs
Temp Pulse Resp BP Pulse Ox
97.8 F 79 16 139/66 96
09/20/24 07:08 09/20/24 07:50 09/20/24 07:50 09/20/24 07:12 09/20/24 07:50
Intake & Output
09/18/24 09/19/24 09/20/24 09/21/24
06:59 06:59 06:59 06:59
Intake Total 120 / 120 550 / 550
Output Total 230 / 230 175 / 175
Balance -230 / -230 -55 / -55 550 / 550
Physical Exam
Physical Exam
GEN: AAOx3, tremor
HEENT: EOMI, MMM
LUNGS: RA. Productive cough
CV: SR on tele
ABD: ND
EXT: No edema B/L
NEURO: Gross non-focal
SKIN: No rash
[2024-09-20] MEDS: OSCAL CAL 500 500 MG PO (08:12)
[2024-09-20] MEDS: CARDIZEM CD 120 MG PO (08:13)
[2024-09-20] MEDS: DECADRON 4 MG IV (08:13)
[2024-09-20] MEDS: ELIQUIS 2.5 MG PO (08:13)
[2024-09-20] MEDS: COZAAR 50 MG PO (09:03)
--- NOTE | 2024-09-20 09:56 | W.PN.HOSP.TC ---
Today's Communication/Plan
-
d/c
Assessment / Plan
Assessment / Plan
pt is an 84 year old female
new onset atrial fibrillation with rapid response--pt cannot feel her heart racing--cont cardizem drip--echo just done 09/14/24, would not repeat--CM to [facility] (started by admitting team)--s/p cardioversion 09/19--cleared for d/c
acute exacerbation of HFpEF-- pro BNP 6300--stop IV lasix BID since creat increased--apprec cards--daily weights, I/Os
ADAIR --possibly due to overdiuresis--hold lasix--hold IVF for now--follow creat--rsolved
COPD with mod pulm hypertension--follows with Dr. Roberts---for now cont IV decadron but low threshold to stop steroids--cont nebs
essential HTN--cont meds with holding parameters
hx of mitral valve prolapse--s/p repair in past--cont asa
DVT proph--CM to [facility]
code status -- DNR
Anticipated Discharge: Today
Subjective/Interval History
-
Date of Service: September 20, 2024
pt ready for d/c
Objective Data
-
Labs:
Laboratory Results
09/20/24
03:56
WBC 12.4 H
Hgb 12.4
Hct 35.4 L
Plt Count 225
Sodium 133 L
Potassium 4.7
Chloride 96 L
Carbon Dioxide 25
BUN 43 H
Creatinine 1.0
Glucose 136 H
Calcium 9.6
Total Bilirubin 1.6 H
AST 30
ALT 28
Alkaline Phosphatase 57
Vital Signs:
max temp for 24 hours
09/19/24
22:38
Temp 97.9 F
Vital Signs
Temp Pulse Resp BP Pulse Ox
97.8 F 79 16 139/66 96
09/20/24 07:08 09/20/24 07:50 09/20/24 07:50 09/20/24 07:12 09/20/24 07:50
I&O
09/19/24 09/20/24 09/21/24
06:59 06:59 06:59
Intake Total 120 / 120 550 / 550 300 / 300
Output Total 175 / 175
Balance -55 / -55 550 / 550 300 / 300
Review of Systems
-
All other systems: Reviewed and negative
Physical Exam
-
General: Well Developed, Well Nourished and No Apparent Distress
HEENT: Normocephalic and Atraumatic
Respiratory: Clear to Auscultation; Negative Wheezes or Rhonchi
Cardiac: Regular Rhythm and S1/S2; Negative Murmur
GI: Soft, Nontender, Nondistended and Normal Bowel Sounds
Musculoskeletal: No Clubbing, No Cyanosis and No Edema
Skin: Warm
Neuro: Awake
Psych: Calm
[2024-09-20 10:46] VITALS: BP 123/68
--- NOTE | 2024-09-20 10:54 | PTCARENOTE ---
Tele and IV removed. Discharge instructions reviewed w/ pt. Verbalizes understanding. Escorted via wheelchair and staff assist. Discharged to home.
--- NOTE | 2024-09-20 11:34 | CM ---
Addendum entered by EMERSON Ngo 09/20/24 16:03:
VN referral accepted by Grazyna Pisano, ph# [phone].
T/C to patient to notify and provide phone#
Original Note:
CM following for DC planning needs.
Plan for DC to home today.
Order for VN noted.
Met w/ patient at bedside. She was initially reluctant to VN but then agreed and feels it will be helpful.
She has no preferred VN agency. Referrals made to [facility] and [facility]; both declined to accept.
Third referral sent to [facility], will await response and/or follow up if no response.
Goal is for home w/ VN.
--- NOTE | 2024-09-20 14:27 | CM ---
CM following for DC planning needs.
Met w/ patient at bedside to complete initial assessment.
Pt. resides alone in a private, split level home.
She is functionally indep. w/ ADLs, mobility. She has a SPC, which she does not use.
Pt. has Rx plan and uses [facility] in [place] fpr prescription needs.
Plan is for home, no needs. She expects to return at a later time for a TAVR.
--- NOTE | 2024-09-20 16:12 | W.DCSUMMARY ---
Discharge Summary
Discharge Data
Date of Admission: 09/17/24
Date of Discharge: 09/20/24
-
Pending Results: No
Hospital Course
Primary care physician : Daniel Mccormack
Principal Discharge diagnosis : New onset atrial fibrillation with rapid response, acute exacerbation of diastolic congestive heart failure, acute kidney injury
Chronic Discharge diagnosis : Chronic obstructive pulmonary disease with moderate pulmonary hypertension, essential hypertension, history of mitral valve prolapse
Hospital Course : Patient was an 84-year-old female who presented with complaints of increased shortness of breath with exertion. Patient stated that 2 days prior to admission she noticed increased shortness of breath when reaching up to a cabinet
or bending over. Generally this resolves with rest. She reports a new dry cough that also has been intermittent. She reports bilateral lower extremity edema that resolved with with furosemide. Patient was found to be in new onset atrial
fibrillation with rapid ventricular response and admitted.
Problem #1: New onset atrial fibrillation with rapid ventricular response. Patient was seen in consultation by cardiology. She was started on a Cardizem drip. Echocardiogram was done on September 14, 2024 and was not repeated this admission. She
has been transitioned to Eliquis and diltiazem. She will follow-up with cardiology as an outpatient. Cardioversion was done successfully and the patient is now in sinus rhythm.
Problem #2: Acute exacerbation of diastolic congestive heart failure. Patient's proBNP was 6300. She was started on Lasix 20 mg daily oral. This was increased to IV Lasix twice daily. Unfortunately this had to be held due to rising creatinine.
She is not discharged on diuretics at this time.
Problem #3: Acute kidney injury. Patient's creatinine was 1.2 on admission with this then peaked to 1.4 on September 19, 2024. Again, diuretics were held. On the day of discharge patient's creatinine is now 1.0. This is likely due to overdiuresis.
Problem #4: All other medical issues. These include Chronic obstructive pulmonary disease with moderate pulmonary hypertension, essential hypertension, history of mitral valve prolapse. These medical issues were stable during her hospitalization.
Medications were continued as able.
Patient is stable for discharge home at this time. If there are any questions regarding this dictation or her hospital stay, please not hesitate to call. Our office number is [phone].
Procedure findings :
Conclusion: Uncomplicated cardioversion from atrial fibrillation to sinus rhythm.
Discharge Plan
-
Patient Disposition: Home (Routine Discharge)
Discharge Diagnosis/Procedures: Paroxysmal atrial fibrillation with successful NOVA and cardioversion, acute heart failure preserved ejection fraction, acute kidney injury resolved, chronic obstructive pulmonary disease with moderate pulmonary
hypertension, essential hypertension, history of mitral valve prolapse
Condition: Good
Diet: 2 Gram Sodium
Activity: No strenuous activity
Driving Restrictions: No driving for 24 hours
Bathing Restrictions: None
Blood Work: Check non-fasting blood work in 1-2 weeks
Other Services: VN
Specialty Instructions: Weigh Daily- Call MD for wt gain/loss 3 lbs overnight/5 lbs in 1 week
Instructions: *DCA Heart Failure Instructions
Referrals:
Grazyna Pisano, Visitng Nurse [Other]
Daniel Mccormack, DO [Family Provider] - in less than 1 week
Torey Pearson MD [Active] - 10/12/24 9:40 am (You have an appt to see Dr. Pearson's physician certified ophthalmic surgical assistant, Stephanie, at the [place] office on 10/12/24 at 9:40 AM. Please call [phone] if you need to reschedule.)
Additional Discharge Medication Instructions: -STOP taking aspirin
-Start taking Eliquis 2.5 mg twice a day as a blood thinner due to atrial fibrillation
-Take Lasix (furosemide) 20 mg once a day
-If you feel lightheaded or dizzy then please call the cardiology office at [phone] and press option 4 for the nursing line.
Prescriptions:
New
diltiazem HCl 120 mg Capsule,Extended Release 24hr
120 mg PO DAILY Qty: 30 11RF
Eliquis 2.5 mg tablet
2.5 mg PO BID Qty: 60 0RF
Continued
azithromycin 250 MG tablet
250 mg PO MOWEFR
ipratropium-albuterol 0.5 mg-3 mg(2.5 mg base)/3 mL Solution For Nebulization
3 ml INHALATION R BID
albuterol sulfate 90 mcg/actuation Hfa Aerosol Inhaler
2 inh INHALATION R Q6HPRN PRN (Reason: sob)
fluticasone propionate 50 mcg/actuation [place],Suspension
1 spray INTRANASAL DAILY PRN (Reason: nasal congestion)
losartan 50 mg Tablet
50 mg PO DAILY
potassium 99 mg Tablet
50 mg PO DAILY
calcium carbonate 500 mg calcium (1,250 mg) Tablet
500 mg PO DAILY
budesonide 0.5 mg/2 mL Suspension For Nebulization
0.5 mg INHALATION R BID
fluticasone furoate-vilanterol [Breo Ellipta] 200-25 mcg/dose Blister With Device
1 inh INHALATION R DAILY@1200
Discontinued
furosemide 20 MG tablet
20 mg PO DAILY
aspirin 81 mg Tablet,Chewable
81 mg PO DAILY
Discharge Orders:
Discharge Patient (As Directed); Ordered 09/20/24
Ordered By: Asia Heller
Care Plan Goals
Care Plan Goals:
Problem: Readiness for enhanced knowledge related to diagnosis and treatment plan
Goal: Understand your diagnosis and treatment plan needs, including medications if applicable.
Instructions: Know your diagnosis, underlying causes and treatment plan options, including medications if applicable. Consult with your health care team to learn about your diagnosis and treatment plan, including medications if applicable.
Discharge Date and Time
Discharge Date/Time: 09/20/24 10:53
Print Language: GUATEMALAN
== END 2024-09-20 10:53 | disposition home or self-care (01) | DRG 291 ==
LOC: IVU 22:09
PROVIDERS: Emergency Medicine; Internal Medicine Cardiovascular Disease; Nurse Practitioner Family; ADMITTING PHYSICIAN Hospitalist; ATTENDING PHYSICIAN Internal Medicine; EMERGENCY PHYSICIAN Emergency Medicine; FAMILY PHYSICIAN Family Medicine; OTHER PHYSICIAN Internal Medicine Cardiovascular Disease
PROC: B24BZZ4 Ultrasonography of Heart with Aorta, Transesophageal (ICD-10-PCS; 2024-09-19)
PROC: 5A2204Z Restoration of Cardiac Rhythm, Single (ICD-10-PCS; 2024-09-19)
DX: I11.0 Hypertensive heart disease with heart failure (principal); I50.31 Acute diastolic (congestive) heart failure; J44.1 Chronic obstructive pulmonary disease with (acute) exacerbation; N17.9 Acute kidney failure, unspecified; I48.91 Unspecified atrial fibrillation; Z79.01 Long term (current) use of anticoagulants; Z87.891 Personal history of nicotine dependence; Z66 Do not resuscitate; I27.20 Pulmonary hypertension, unspecified
CPT/HCPCS: 71045; 80048; 80053; 80061; 83735; 83880; 84443; 84484; 85025; 85027; 87502; 87811; 92610; 92960; 93005; 93306; 93312; 93320; 93325; 94640; 96374; 96375; 97116; 97163; 97167; 99291

== ENCOUNTER → 2024-10-12 12:22 | Outpatient (REF) | payer MEDICARE, OTHER, SELFPAY ==
[2024-10-12 14:46] LABS: Blood Urea Nitrogen 21 mg/dl (7-17); Calcium 9.3 mg/dl (8.4-10.2); Carbon Dioxide 25 mmol/L (22-30); Chloride 102 mmol/L (98-107); Glucose 150 mg/dl (70-99); Potassium 4.8 mmol/L (3.5-5.1); Sodium 134 mmol/L (135-145); eGFR > 60.00
== END ==
LOC: REG 12:22
PROVIDERS: ATTENDING PHYSICIAN Physician Assistant Medical
DX: I48.0 Paroxysmal atrial fibrillation (principal)
CPT/HCPCS: 36415; 80048

== ENCOUNTER 2024-11-24 20:12 | Inpatient (IN) | payer MEDICARE, OTHER, SELFPAY ==
[2024-11-24 16:35] VITALS: BP 136/77; BMI 19.7
--- NOTE | 2024-11-24 17:09 | ED.GENMED ---
History of Present Illness
General
Chief Complaint: Breathing Problem
Source: patient and spouse
Exam Limitations: none
Time Seen by Provider: 11/24/24 17:07
History of Present Illness
History of Present Illness:
Patient has had increased shortness of breath since her hospitalization in September. However early this morning shortness of breath became much more severe. No pleuritic pain no sputum no hemoptysis. Symptoms are moderate in nature. Patient had
an outpatient CT scan done November 14 that shows diffuse nodular multi lobar pneumonitis
Past History
Past History
ED Past Medical History: COPD and Other (Mitral valve prolapse)
ED Past Surgical History: Cardiac (Mitral valve surgery) and Orthopedic (Right hip)
Social History
Tobacco: Non-smoker
Alcohol: None
Drug: None
Personal:
Living: with family
Employment: Retired
Review of Systems
Review of Systems
All Other Systems: Not applicable
Constitutional: Denies fever
Respiratory: Denies hemoptysis
Cardiac: Denies chest pain or syncope
Phy Exam
Physical Exam
Physical Exam:
GENERAL: Alert and oriented. Mildly tachypneic at rest and mildly breathless. Hypoxic on arrival
EYE: Orbits normal.
NECK: Supple, no significant adenopathy.
ENT: Pharynx without erythema
CARDIAC: Regular rate and rhythm without any obvious murmurs.
LUNGS: Mild tachypnea. Decreased breath sounds diffusely. Dry rales in multiple lung ren
ABDOMEN: Soft, without focal tenderness or distention
NEUROLOGICAL: Alert and oriented , grossly non-focal
SKIN: Warm and dry, no rash or lesion, no discoloration, skin intact.
MUSCULOSKELETAL: No edema,no deformity.Good color
PSYCH: Normal and appropriate interaction.
Scores
Heart Failure Risk
Heart Failure Risk Score: Not Applicable
Course
Orders/Labs/Results
Orders:
Orders
11/24/24 Dinner
Sodium, 2 Gram
At Your Request: Limited Participation
Does patient need a safe tray?: No
11/24/24 16:31
EKG [Electrocardiogram (*1)] Urgent
Reason for Study: Shortness of Breath
EKG- Treatment ONCE
11/24/24 16:41
Electrocardiogram (*1) Urgent
Reason for Study: Shortness of Breath
EKG- Treatment ONCE
11/24/24 16:47
Electrocardiogram (*1) Urgent
Reason for Study: Shortness of Breath
EKG- Treatment ONCE
11/24/24 17:26
Cardiac Monitoring- Treatment ONCE
IV Insert/Care/Rem.- Treatment PRN
Dexamethasone Sod Phosphate [Decadron] 8 mg IV NOW STA
Ipratropium/Albuterol Sulfate [Duoneb] 3 ml INH R NOW STA
11/24/24 17:27
CR Chest - 2 Views Urgent
Comment:
Reason For Exam: Increase short of breath
11/24/24 17:42
Basic Metabolic Panel Urgent
COVID-19 Antigen Urgent
Source: Nasal Swab
Complete Blood Count/With Diff Urgent
Ferritin Urgent
Comment: ADD ON
Folate Urgent
Comment: ADD ON
Iron Urgent
Comment: ADD ON
NT-proBNP Urgent
Total Iron Binding Urgent
Comment: ADD ON
Troponin I Urgent
Vitamin B12 Urgent
Comment: ADD ON
Influenza A+B Rapid Molecular Urgent
YANY Source: Nasal Swab
Specimen Description:
11/24/24 18:50
Azithromycin 500 mg/250 ml [Zithromax Infusion] 500 mg in 250 ml IV NOW
CefTRIAXone [Rocephin] 1,000 mg IV NOW STA
11/24/24 19:40
Admit/Transfer Patient As Directed
Co-Sign Provider:
Level of Care: Inpatient admission
Assign to:: Telemetry
Physician / Group: Wilberto
Diagnosis: COPD/CHF
Reason for Telemetry: Arrhythmia
Date to Stop Telemetry: 11/27/24
Time to Stop Telemetry: 11:00
Reason for Hospitalization: Nebs, Steroids, Diuretics
Expected length of stay greater than two midnights?: Yes
ELOS- Estimated Length of Stay in days: 3
I certify the patient meets the requirements for IP care: Yes
11/24/24 19:44
Code Status As Directed
Resuscitation Status: Do not resuscitate
Reached after discussion with pt or family/Healthcare POA: Yes
11/24/24 19:53
Sputum Culture [Respiratory Culture/Gram Stain] Routine
YANY Source: Sputum
Specimen Description:
11/24/24 20:12
Add On- LAB Routine
Tests Added?: iron, ferritin, tibc folate vit b12
11/24/24 20:17
RSV [Respiratory Syncytial Virus] Urgent
YANY Source: Nasal Swab
Specimen Description:
Date Specimen was Collected: 11/24/24
Time Specimen was Collected: 20:11
11/24/24 21:02
Acetaminophen [Tylenol] 650 mg PO Q6HPRN PRN
Apixaban [Eliquis] 2.5 mg PO BID
Budesonide [Pulmicort] 0.5 mg INH R BID
Doxycycline [Vibramycin] 100 mg PO BID
Guaifenesin [Mucinex] 600 mg PO Q12
Ipratropium/Albuterol Sulfate [Duoneb] 3 ml INH R Q4HPRN PRN
Ipratropium/Albuterol Sulfate [Duoneb] 3 ml INH R QID
11/24/24 21:02
Activity As Directed
Activity Level: Out of Bed-Early Mobility
Intake/ Output As Directed
Frequency: Per unit guidelines
Vital Signs As Directed
Frequency: Per unit guidelines
Weight As Directed
Frequency: Daily
O2 Therapy [RESP] Routine
Titrate/Wean O2 to maintain O2 sat greater than (%): 90
Special Instructions: adjust, if necessary, to avoid hyperoxia in CO2 retainers.
Use High Flow O2 if necessary
11/25/24 06:00
Basic Metabolic Panel IN AM
Complete Blood Count/No Diff IN AM
11/25/24 08:00
Diltiazem Extended Release [Cardizem Cd] 120 mg PO DAILY
Metoprolol Xl [Toprol Xl] 25 mg PO DAILY
11/25/24 20:00
CefTRIAXone [Rocephin] 1,000 mg IV Q24H
Abnormal Lab Results
11/24/24
17:42
RBC 3.59 L 10^6/uL
(4.20-5.40)
Hgb 10.9 L g/dL
(12.0-16.0)
Hct 33.5 L %
(37.0-47.0)
MCHC 32.5 L g/dL
(33.0-37.0)
Neutrophils % 77.5 H %
(42.2-75.2)
Lymphocytes % 15.2 L %
(20.5-51.1)
BUN 29 H mg/dl
(7-17)
Creatinine 0.5 L mg/dL
(0.6-1.0)
TIBC 229 L ug/dl
(265-497)
11/24/24 17:42
11/24/24 17:42
Vital Signs
Initial and Last Documented VS:
Initial Vital Signs
Temp Pulse Resp BP
98.8 F 78 20 136/77
11/24/24 16:35 11/24/24 16:35 11/24/24 16:35 11/24/24 16:35
Last Documented Vital Signs
Temp Pulse Resp BP Pulse Ox
97.6 F 97 28 162/87 95
11/24/24 21:15 11/24/24 21:15 11/24/24 21:15 11/24/24 21:15 11/24/24 21:15
MDM/Problems Addressed
Differential Diagnosis Includes:
This appears to be a primary lung issue. Highly doubt CHF. Highly doubt pulmonary emboli. CT scan shows a multilobar nodular infiltrate about 8 days ago. Infectious versus inflammatory. Steroids and nebs will likely require admission.
*EKG
Interpreted by ED Provider?: Yes
Interpretation: normal
Comparison EKG: no changes
Heart Rate: 86
Rate: normal
Rhythm: sinus and PVC's
[place]: normal axis
Interval: normal interval
QRS Pattern: normal QRS
Ischemia: no ischemia
*Critical Care Note
Total Time (30-74mins, 75-104mins- exclusive of procedures): Not Applicable
Data Reviewed
Review of Other/Old Records Reveals: Labs, Records, Radiology Studies, Testing and Discharge Summary
Update Note
Update Note:
Multifocal pneumonitis by recent CT. There is atelectasis versus pneumonia right base. I do not think she is in heart failure although proBNP is elevated. Likely from right-sided cardiac issues. Given this patient's respiratory status she
warrants inpatient management
ED Attending Note
-
Portions of this chart may have been created with voice recognition software.� Occasional wrong word or��sound alike� substitutions may have occurred due to the inherent limitations of voice recognition software.
Discharge Plan
Departure
Patient Disposition: Admit
Date of Disposition: 11/24/24
Time of Disposition: 19:11
Presentation/result/management discussed w/ accepting MD/DO: Hospitalist
Discharge Problem:
Hypoxia/COPD exacerbation, Multilobar pneumonia
Interventions
Interventions:
*Risk Screen - Suicide Last Done: 11/24/24 16:35
*General Assessment Last Done: 11/24/24 21:05
*Neglect/Abuse Screening Last Done: 11/24/24 21:05
ED- Fall Risk Assessment Last Done: 11/24/24 18:59
*ED COVID-19 Vaccine History Last Done: 11/24/24 16:35
*Nursing Disposition Last Done: 11/24/24 21:05
ED- Cardiac Assessment Last Done: 11/24/24 18:59
ED- Pulmonary Assessment Last Done: 11/24/24 18:59
Discharge Date and Time
Discharge Date/Time: 11/24/24 21:06
[2024-11-24 17:23] VITALS: BP 138/95
[2024-11-24] MEDS: DUONEB 3 ML INH (17:44)
[2024-11-24] MEDS: DECADRON 8 MG IV (17:44)
[2024-11-24 17:56] LABS: % Basophils 0.5 % (0-2); % Eosinophils 0.8 % (0-6); % Immature Granulocytes 0.2 % (0-0.5); % Lymphocytes 15.2 % (20.5-51.1); % Monocytes 5.8 % (1.7-9.3); % Neutrophils 77.5 % (42.2-75.2); Absolute Eosinophils 0.1 10^3/uL (0-0.7); Absolute Lymphocytes 1.3 10^3/uL (1.2-3.4); Absolute Monocytes 0.5 10^3/uL (0.1-0.6); Absolute Neutrophils 6.4 10^3/uL (1.4-6.5); Hematocrit 33.5 % (37.0-47.0); Hemoglobin 10.9 g/dL (12.0-16.0); Mean Corp Hgb Conc. 32.5 g/dL (33.0-37.0); Mean Corpuscular Hgb 30.4 pg (27.0-31.0); Mean Corpuscular Volume 93.3 fL (81.0-99.0); Mean Platelet Volume 10.2 fL (7.4-10.4); Nucleated Red Blood Cells % 0 %; Platelet Count 374 10^3/uL (130-400); Red Blood Cell Count 3.59 10^6/uL (4.20-5.40); Red Cell Dist. Width 14.4 % (11.5-14.5); White Blood Cell Count 8.3 10^3/uL (4.8-10.8)
[2024-11-24 18:16] VITALS: BP 128/80
[2024-11-24 18:17] LABS: Blood Urea Nitrogen 29 mg/dl (7-17); Calcium 9.5 mg/dl (8.4-10.2); Carbon Dioxide 22 mmol/L (22-30); Chloride 107 mmol/L (98-107); Estimated Creatinine Clearance 49 ml/min; Glucose 91 mg/dl (70-99); Potassium 4.2 mmol/L (3.5-5.1); Sodium 138 mmol/L (135-145); eGFR > 60.00
[2024-11-24 18:23] LABS: NT-proBNP 4930 pg/ml; Troponin I 0.015 ng/ml
[2024-11-24 18:37] LABS: COVID-19 Antigen Negative (Negative)
--- NOTE | 2024-11-24 19:20 | HPS.HSE ---
Addendum entered and electronically signed by Anjum Ladd DO 11/24/24 20:33:
Patient seen and examined independently. Agree with findings and plan as set forth by Gladis Luque PA-C.
Patient is an 84y F with PMH significant for A-Fib, CHF and COPD who presents to ED complaining of increased SOB and productive cough x several days. No known sick contacts. Patient takes diuretics 'as needed' for LE edema or weight gain and
notes that she has not taken any doses in some time.
Evaluation in the ED reveals R base opacity c/w pneumonia. Breath sounds are diminished throughout - but without active wheezing at present.
Ass:
RLL Pneumonia
COPD with Acute Exacerbation secondary to the above
Chronic Hypoxemic Respiratory Failure
Chronic HFpEF
Paroxysmal Atrial Fibrillation
Normocytic Anemia - new
Plan:
Admit for further evaluation and treatment.
Cover for CAP with ceftriaxone and doxycycline. Hold chronic azithromycin for now.
Continue usual inhaled medications.
Observe off of additional systemic steroids for now.
Follow for clinical improvement.
Continue other usual home medications including Eliquis.
Work-up apparently new anemia. Note Eliquis is a relatively new addition.
Original Note:
Family Physician
-
Family Physician: Daniel Mccormack
Chief Complaint
-
Shortness of Breath
History of Present Illness
Patient is an 84 y/o female past medical history of CHF, A-Fib, and COPD who presents with shortness of breath. Patient reports about a month ago she started using oxygen at night. Over the last few days she has been using her oxygen during the
day due to increased shortness of breath. She reports associated cough that is productive of dark yellow/brown mucus. She denies fevers, sweats or chills. She denies changes in weight, lower extremity edema, chest pain or palpitations.
Medical History
Past Medical History
Past Medical History: Reports Other
Additional Past Medical History:
Chronic HFpEF
Paroxysmal Atrial Fibrillation
COPD
Moderate Pulmonary Hypertension
Essential Hypertension
Past Surgical History: Reports Other
Additional Past Surgical History:
Mitral Valve Repair
Right Hip Replacement
Social History
Tobacco: Former Smoker (1 pack per week for approximately 45 years, 5 pack year history)
Alcohol: Daily (wine nightly)
Drug: None
Personal:
Living: With Family
Employment: Retired
Family History
Family History: Not pertinent
Allergies / Home Medications
Allergies reflects when Allergies were last updated in [facility].
Home Medications with original date entered in [facility]
Allergy/Medication List:
Allergies
Allergy/AdvReac Type Severity Reaction Status Date / Time
No Known Allergies Allergy Verified 04/21/22 09:12
Home Medications
azithromycin 250 mg tablet 250 mg PO MOWEFR Infection 03/02/22
albuterol sulfate 90 mcg/actuation aerosol inhaler 2 inh inhalation R Q6HPRN PRN sob 04/21/22
ipratropium 0.5 mg-albuterol 3 mg (2.5 mg base)/3 mL nebulization soln 3 ml inhalation R DAILY Lung/Breathing Issues 04/21/22
budesonide 0.5 mg/2 mL suspension for nebulization 0.5 mg inhalation R BID Lung/Breathing Issues 09/17/24
apixaban 2.5 mg tablet (Eliquis) 2.5 mg PO BID Blood clot prevention/tx #60 tabs 09/20/24
diltiazem HCl 120 mg capsule,extended release 24 hr 120 mg PO DAILY Arrhythmia #30 caps 09/20/24
acetaminophen 325 mg tablet (Tylenol) 650 mg PO Q6HPRN PRN headache 11/24/24
fluticasone fur. 200 mcg-umeclid 62.5 mcg-vilant 25 mcg inhalat.powder (Trelegy Ellipta) 1 inh inhalation R DAILY 11/24/24
metoprolol succinate 25 mg tablet,extended release 24 hr (Toprol XL) 25 mg PO DAILY 11/24/24
prednisone 5 mg tablet 5 mg PO DAILY 11/24/24
Review of Systems
-
A 12 point ROS was completed and negative except as noted: Yes
Constitutional: Denies Fever or Chills
Respiratory: Reports See HPI
Physical Exam
Vital Signs
Vital Signs
Temp Pulse Resp BP Pulse Ox
98.8 F 91 23 128/80 94
11/24/24 16:40 11/24/24 18:49 11/24/24 18:49 11/24/24 18:16 11/24/24 18:30
Physical Exam
General: Comfortable and Conversant
HEENT: Anicteric, Moist mucous membranes and Oxygen (Nasal Cannula)
Respiratory: Rales (Bilaterally) and Non Labored Respirations
Cardiac: S1/S2 and Regular Rhythm
GI: Soft and Non Tender
Rectal: Deferred by Provider
Musculoskeletal: No Clubbing, No Cyanosis and No Edema
Skin: Warm and Dry
Neuro: Awake, Alert, Oriented and Nonfocal/grossly intact
Psych: Calm
Laboratory Results
-
11/24/24 17:42
11/24/24 17:42
Laboratory Results
Troponin I 0.015 ng/ml 11/24/24 17:42
Data Reviewed
-
Diagnostic Radiology: Report Reviewed by me
Lab Data: Labs Reviewed by me
Impression/Plan
-
Worsening Shortness of Breath, probable Pneumonia with possible Acute COPD Exacerbation
-Transition to oral doxycycline as patient is maintained on azithromycin as outpatient
-Continue Ceftriaxone
-Hold on further steroids
-Continue Pulmicort Nebs
-Continue DuoNeb QID and PRN
-Check Procalcitonin and Sputum Culture
Chronic Hypoxic Respiratory Failure
-Continue supplemental oxygen
Chronic HFpEF
-Monitor Daily Weights
Paroxysmal Atrial Fibrillation
-Continue Eliquis for anticoagulation
-Continue metoprolol and Cardizem for rate control
Normocytic Anemia, new compared to prior labs
-Check iron studies
DVT proph: Eliquis
Code Status: DNR confirmed with patient at time of admission
[2024-11-24] MEDS: ROCEPHIN 1000 MG IV (20:05)
[2024-11-24] MEDS: ZITHROMAX INFUSION 250 IV (20:05)
[2024-11-24 21:15] VITALS: BP 162/87; BMI 20.3
[2024-11-24 21:39] LABS: Iron 52 ug/dl (37-170)
[2024-11-24 21:48] LABS: Percent Saturation 22 % (20-50); Total Iron Binding Capacity 229 ug/dl (265-497)
[2024-11-24 22:02] VITALS: BMI 20.3
[2024-11-24] MEDS: ELIQUIS 2.5 MG PO (22:04)
[2024-11-24] MEDS: VIBRAMYCIN 100 MG PO (22:04)
[2024-11-24] MEDS: MUCINEX 600 MG PO (22:04)
[2024-11-24] MEDS: PULMICORT INH (22:50)
[2024-11-24] MEDS: DUONEB INH (22:50)
[2024-11-24 23:04] LABS: Folate 19.9 ng/ml (2.76-20); Vitamin B12 587 pg/ml (239-931)
[2024-11-24 23:52] VITALS: BP 139/85
[2024-11-25] MEDS: DUONEB 3 ML INH ×5 (01:04→19:18)
[2024-11-25] MEDS: LASIX 20 MG IV (01:32)
[2024-11-25 03:45] VITALS: BP 145/82
[2024-11-25 05:04] VITALS: BMI 20.1
[2024-11-25 07:24] LABS: Hematocrit 30.9 % (37.0-47.0); Mean Corp Hgb Conc. 32.4 g/dL (33.0-37.0); Mean Corpuscular Hgb 30.7 pg (27.0-31.0); Mean Corpuscular Volume 94.8 fL (81.0-99.0); Mean Platelet Volume 10.2 fL (7.4-10.4); Platelet Count 321 10^3/uL (130-400); Red Blood Cell Count 3.26 10^6/uL (4.20-5.40); Red Cell Dist. Width 14.4 % (11.5-14.5); White Blood Cell Count 4.3 10^3/uL (4.8-10.8)
[2024-11-25 07:45] VITALS: BP 123/70
[2024-11-25] MEDS: PULMICORT 0.5 MG INH ×2 (07:59→19:18)
[2024-11-25] MEDS: TOPROL XL 25 MG PO (08:19)
[2024-11-25] MEDS: CARDIZEM CD 120 MG PO (08:19)
[2024-11-25] MEDS: DELTASONE 5 MG PO (08:19)
[2024-11-25] MEDS: ELIQUIS 2.5 MG PO ×2 (08:19→19:52)
[2024-11-25] MEDS: VIBRAMYCIN 100 MG PO ×2 (08:19→19:52)
[2024-11-25] MEDS: MUCINEX 600 MG PO ×2 (08:19→19:52)
[2024-11-25 08:21] LABS: Blood Urea Nitrogen 26 mg/dl (7-17); Calcium 9.3 mg/dl (8.4-10.2); Carbon Dioxide 26 mmol/L (22-30); Chloride 106 mmol/L (98-107); Estimated Creatinine Clearance 47 ml/min; Glucose 136 mg/dl (70-99); Potassium 4.3 mmol/L (3.5-5.1); Sodium 141 mmol/L (135-145); eGFR > 60.00
--- NOTE | 2024-11-25 09:30 | PTCARENOTE ---
Patient with bradycardic episodes overnight. Patient with sinus tachycardia/sinus rhythm this am with frequent polymorphic PVCs.
[2024-11-25 11:25] VITALS: BP 118/64
--- NOTE | 2024-11-25 12:20 | W.PN.HOSP.TC ---
Today's Communication/Plan
-
Cardiology evaluation for pacemaker
Continue antibiotic regimen
Continue home prednisone dose
Telemetry
Wean oxygen
Assessment / Plan
Assessment / Plan
#Acute on chronic hypoxemic respiratory failure
#RLL pneumonia
#COPD without signs of exacerbation
-Chronically uses 2 L of oxygen nightly; history of COPD on Trelegy, chronic prednisone, and azithromycin
-Upon arrival had signs of right lower lobe pneumonia on chest x-ray with hypoxemia
-Required. 4 L of oxygen on arrival which is since been titrated back down to 2 L at rest
-Upon arrival was transition to ceftriaxone and doxycycline; continued on chronic prednisone
-States that her breathing does feel improved as of this morning, SpO2 96% on 2L
-Viral respiratory panel was negative
Plan
-Continue antibiotics and trend CBC and temperature curve
-Continue home inhalers as well as standing and PRN DuoNebs
-Hold further Lasix for now as she does seem fairly euvolemic
-SpO2 goal 88 to 94%
#Symptomatic bradycardia
-Concern for sick sinus syndrome/tachycardia-bradycardia syndrome
-Overnight had heart rate down into the 30s per telemetry, tachycardic at other times
-States that over the last week she is woken up nightly with paroxysmal dyspnea
-Suspect that this has been recurrent bradycardia nightly
Plan
-Consulted cardiology, consideration for pacemaker
-Will continue current AVN blockade regimen pending cardiology eval
-Continue on telemetry
#New normocytic anemia
-Presented with hemoglobin of 10.9, MCV 94.8; previous hemoglobin baseline between 12 and 13
-Iron panel with mixed picture, low TIBC consistent with chronic disease but ferritin lower than expected
-Question if she has underlying gastrointestinal bleeding
-Will start oral ferrous sulfate daily
-Trend CBC while here
-OP follow-up for colonoscopy if overdue
#Chronic HFpEF
-Unclear etiology; not currently on guideline directed therapy
-Home meds include diltiazem and metoprolol; no standing diuretic
#Paroxysmal AF
-Nonvalvular; Home medications include dual AVN blockade with metoprolol and diltiazem and AC with Eliquis
-Does have history of previous cardioversions, most recent in September 2024; no known ablation
-As of this morning heart rate was volatile with occasional tachycardia, bradycardia overnight
DVT prophylaxis: Home Eliquis
Diet: 2 g sodium restricted
CODE STATUS: DNR
Anticipated Discharge: > 48 hours
Subjective/Interval History
-
Date of Service: November 25, 2024
Seen and examined at the bedside. No acute events reported overnight. Per telemetry patient was noted to have bradycardia into the 30s while sleeping, tachycardic at times when awake.
She mentions that over the last week she has awoken at night multiple times with shortness of breath. Denies similar symptoms when awake
She denies any other new complaints as of this morning
Objective Data
-
Labs:
Laboratory Results
11/25/24
06:36
WBC 4.3 L
Hgb 10.0 L
Hct 30.9 L
Plt Count 321
Sodium 141
Potassium 4.3
Chloride 106
Carbon Dioxide 26
BUN 26 H
Creatinine 0.6
Glucose 136 H
Calcium 9.3
Vital Signs:
Vital Signs
Temp Pulse Resp BP Pulse Ox
97.7 F 94 18 118/64 98
11/25/24 11:25 11/25/24 11:25 11/25/24 11:25 11/25/24 11:25 11/25/24 11:25
Review of Systems
-
History Source: Patient
All other systems: Reviewed and negative
Physical Exam
-
General: Well Developed, No Apparent Distress and Comfortable
HEENT: Normocephalic, Atraumatic, Moist Mucous Membranes and Anicteric
Respiratory: Clear to Auscultation and Non Labored Respirations; Negative Wheezes, Rales, Rhonchi or Accessory Resp Muscle Use
Cardiac: Regular Rhythm and S1/S2; Negative Murmur, Rub, JVD or Gallop
GI: Soft, Nontender, Nondistended and Normal Bowel Sounds
Musculoskeletal: No Clubbing, No Cyanosis and No Edema
Skin: Warm, Dry and Normal Turgor; Negative Rash
Neuro: AO x 3 and Nonfocal/Grossly Intact
Psych: Calm
Data Reviewed
-
Medical Tests (Nuc Med, Echo etc): Report Reviewed by me (Discussed telemetry readings with pharmacy operations manager)
Labs: Labs Reviewed by me and Discussed with Patient
[2024-11-25] MEDS: FEOSOL 325 MG PO (12:54)
--- NOTE | 2024-11-25 15:35 | CM ---
Patient with Hx COPD here with Dx PNA. Plan cardiology evaluation for pacemaker. O2 2L. Receiving IV Abx.
Met with patient and amor; the patient resides with her in a first floor duplex with [address], in [facility].
The patient was independent in ADLs and ambulation.
DME - [employer] [facility] 2L [facility]
Prior VN in [place] - can't remember agency
No prior SNF
PCP - Daniel Mccormack
Pharmacy - [facility]
CM Consult: Dean check Farxiga
Per [facility] [facility] Orders: Farxiga $138.60/month, dapaglifloxin $189.20/month.
Patient ok with cost of Farxiga. Provided Farxiga Free Month card with instructions.
Plan home.
[2024-11-25 15:40] VITALS: BP 117/71
[2024-11-25] MEDS: ROBITUSSIN 200 MG PO (16:19)
--- NOTE | 2024-11-25 17:42 | CON.CAR ---
Consultation
Consultation Request
Date/Time Consultation Requested: 11/25/24
Date/Time Consultation Performed: 11/25/24
Requesting Provider: Kennedy
Performing Provider: Blanca
Reason for Consultation: tachycardia, bradycardia
Medical History
-
Chief Complaint: SOB
History of Present Illness:
84-year-old woman past medical history of heart failure preserved ejection fraction and COPD on 2 L home O2 who presents with worsening dyspnea/hypoxia and was admitted for treatment of suspected right lower lobe pneumonia for which she is receiving
IV antibiotics. Cardiology is consulted for evaluation of possible tachy/bradycardia syndrome.
Was recently treated for pneumonia. Underwent follow-up CT chest as an outpatient approximately 1 week ago showing possible multifocal pneumonia/pneumonitis. Receiving steroids, antibiotics and nebulizer treatments here but still reporting dyspnea.
While hospitalized here she is monitored on telemetry and was noted to be bradycardic into the 30s overnight but at times during the day tachycardic and with ectopy, PACs and PVCs. Does not seem to be overtly symptomatic with either bradycardia or
tachycardia. We discussed that she is on 2 AV yanet blockers but she is unclear when metoprolol was added to her medication regimen.
Tells me that over the past week she has had worsening dyspnea, orthopnea and bendopnea. proBNP elevated up to almost 5000 here. Currently takes Lasix as needed 20 mg however will only utilize approximately once every 2 weeks. Did receive a dose
of IV Lasix around 1 AM this morning however not clear that this improved her respiratory status.
PMHx:
HFpEF
Atrial fibrillation
Moderate MR s/p MitraClip at [place] 10/2022
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
COPD with moderate PHTN
HTN
Past Medical History
Past Medical History: Other (as above)
Past Surgical History: Other (as above)
Social History
Tobacco: Former Smoker
Personal:
Living: With Family
Employment: Retired
Family History
Family History: Reviewed & Not Pertinent
Allergies / Home Medications
Allergy/AdvReac Type Severity Reaction Status Date / Time
No Known Allergies Allergy Verified 04/21/22 09:12
�Medication �Instructions �Recorded �Confirmed �Type
azithromycin 250 mg tablet 250 mg PO MOWEFR Infection 03/02/22 11/24/24 History
albuterol sulfate 90 mcg/actuation 2 inh inhalation R Q6HPRN PRN sob 04/21/22 11/24/24 History
aerosol inhaler
ipratropium 0.5 mg-albuterol 3 mg 3 ml inhalation R DAILY 04/21/22 11/24/24 History
(2.5 mg base)/3 mL nebulization Lung/Breathing Issues
soln
budesonide 0.5 mg/2 mL suspension 0.5 mg inhalation R BID 09/17/24 11/24/24 History
for nebulization Lung/Breathing Issues
apixaban 2.5 mg tablet (Eliquis) 2.5 mg PO BID Blood clot 09/20/24 11/24/24 Rx
prevention/tx #60 tabs
diltiazem HCl 120 mg 120 mg PO DAILY Arrhythmia #30 caps 09/20/24 11/24/24 Rx
capsule,extended release 24 hr
acetaminophen 325 mg tablet 650 mg PO Q6HPRN PRN headache 11/24/24 11/24/24 History
(Tylenol)
fluticasone fur. 200 mcg-umeclid 1 inh inhalation R DAILY 11/24/24 11/24/24 History
62.5 mcg-vilant 25 mcg
inhalat.powder (Trelegy Ellipta)
metoprolol succinate 25 mg 25 mg PO DAILY 11/24/24 11/24/24 History
tablet,extended release 24 hr
(Toprol XL)
prednisone 5 mg tablet 5 mg PO DAILY 11/24/24 11/24/24 History
Review of Systems
-
History Source: Patient
All other systems: Negative unless noted
Physical Exam
Vital Signs
Temp Pulse Resp BP Pulse Ox
98.1 F 92 18 117/71 98
11/25/24 15:40 11/25/24 15:40 11/25/24 15:40 11/25/24 15:40 11/25/24 15:40
Lab Results
11/25/24 06:36
11/25/24 06:36
Troponin I 0.015 ng/ml 11/24/24 17:42
Ret-U-Uxscbgexecl Pept 4930 pg/ml 11/24/24 17:42
Physical Exam
General: Well Developed
HEENT: Normocephalic
Respiratory: Non Labored Respirations
Cardiac: S1/S2
Breast: Deferred by me
GI: Soft
Musculoskeletal: No Edema
Skin: Warm and Dry
Neuro: AO x 3
Psych: Calm
Impression / Plan
-
PCP: Dr. Mccormack
Cardiology: Dr. BASSEM Pearson
Impression:
Admitted with SOB/hypoxia
RLL PNA
Acute on chronic HFpEF
Afib
Moderate MR s/p MitraClip at [place] 10/2022
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
COPD with moderate PHTN
HTN
Echo 09/14/24: EF 50%, severe biatrial dilatation, s/p MitraClip with at least moderate MR and mean mitral gradient 2 mmHg, no AI, mod to sev TR and PAP 51 mmHg
Plan:
-Presented for worsening dyspnea/hypoxia and is being treated for community-acquired pneumonia
-Suspect dyspnea is multifactorial but there is likely a component of heart failure with preserved ejection fraction based on her report of orthopnea/PND and bendopnea
-Would give additional dose of IV Lasix 20 mg on the morning of 11/26 in an attempt to improve her respiratory status. Recommend reassessing need for additional doses after this as she developed ADAIR during prior hospitalization.
-Continue daily standing weights and follow Cr
-Has only been taking Lasix at home on as needed basis perhaps once every 2 weeks. Would consider M/W/F dosing with lasix 20 mg.
-SGLT2 is not cost prohibitive, would consider discharging on Farxiga 10 mg daily (brand name is supposedly cheaper than generic per case management)
-We are asked to comment on possible tachy-mateusz syndrome
-Nocturnal bradycardia may be related to hypoxia and will hopefully improve with treatment of pneumonia/COPD/CHF. Would consider outpatient evaluation for sleep apnea, but will defer to patient's turbine operator.
-For now would prefer to have her on a single AV yanet anmol. Stop metoprolol. Continue diltiazem.
-Monitor on telemetry
-If she becomes more tachycardic can increase diltiazem dose
Discussed with patient's at bedside
Data Reviewed
-
EKG: Tracing Personally Visualized and interpreted
Radiology: Image Personally Visualized and interpreted
Medical Tests (Nuc Med, Echo etc): Report Reviewed by me
Labs: Labs Reviewed by me
Old Records: Reviewed
[2024-11-25 19:40] VITALS: BP 123/86
[2024-11-25] MEDS: STERILE WATER FOR INJECTION 10 ML IV (19:52)
[2024-11-25] MEDS: ROCEPHIN 1000 MG IV (19:53)
[2024-11-25 23:33] VITALS: BP 136/75
[2024-11-26 03:26] VITALS: BP 129/71
[2024-11-26 05:10] VITALS: BMI 19.8
[2024-11-26 06:58] VITALS: BP 121/56
[2024-11-26] MEDS: DUONEB 3 ML INH ×4 (07:14→19:32)
[2024-11-26] MEDS: PULMICORT 0.5 MG INH ×2 (07:14→19:32)
[2024-11-26 08:02] LABS: % Basophils 0.1 % (0-2); % Eosinophils 0.1 % (0-6); % Immature Granulocytes 0.6 % (0-0.5); % Lymphocytes 9.6 % (20.5-51.1); % Monocytes 4.8 % (1.7-9.3); % Neutrophils 84.8 % (42.2-75.2); Absolute Immature Granulocytes 0.1 10^3/uL (0-0.05); Absolute Lymphocytes 1.1 10^3/uL (1.2-3.4); Absolute Monocytes 0.5 10^3/uL (0.1-0.6); Absolute Neutrophils 9.4 10^3/uL (1.4-6.5); Hemoglobin 10.6 g/dL (12.0-16.0); Mean Corp Hgb Conc. 32.1 g/dL (33.0-37.0); Mean Corpuscular Hgb 30.3 pg (27.0-31.0); Mean Corpuscular Volume 94.3 fL (81.0-99.0); Mean Platelet Volume 9.8 fL (7.4-10.4); Nucleated Red Blood Cells % 0 %; Platelet Count 373 10^3/uL (130-400); Red Cell Dist. Width 14.5 % (11.5-14.5); White Blood Cell Count 11.1 10^3/uL (4.8-10.8)
[2024-11-26] MEDS: ELIQUIS 2.5 MG PO ×2 (08:26→21:40)
[2024-11-26] MEDS: FEOSOL 325 MG PO (08:26)
[2024-11-26] MEDS: CARDIZEM CD 120 MG PO (08:26)
[2024-11-26] MEDS: DELTASONE 5 MG PO (08:27)
[2024-11-26] MEDS: VIBRAMYCIN 100 MG PO ×2 (08:27→21:41)
[2024-11-26] MEDS: MUCINEX 600 MG PO ×2 (08:27→21:41)
[2024-11-26] MEDS: LASIX 20 MG IV ×2 (08:28→15:16)
[2024-11-26 08:34] LABS: Blood Urea Nitrogen 25 mg/dl (7-17); Calcium 9.7 mg/dl (8.4-10.2); Carbon Dioxide 28 mmol/L (22-30); Chloride 103 mmol/L (98-107); Estimated Creatinine Clearance 47 ml/min; Glucose 97 mg/dl (70-99); Magnesium 1.9 mg/dl (1.6-2.3); Potassium 4.2 mmol/L (3.5-5.1); Sodium 138 mmol/L (135-145); eGFR > 60.00
[2024-11-26 11:07] VITALS: BP 121/75
--- NOTE | 2024-11-26 13:18 | W.PN.CARDCBS ---
Addendum entered and electronically signed by Kennedy Honeycutt MD 11/26/24 13:59:
I saw and examined the patient.
The BOX PERSON or PA's note was reviewed and I agree with the note.
Comment: General: Well developed, well nourished in NAD.
Neck: Supple, no JVD, HJR, carotids +2 B/L, no bruits bilaterally.
Heart: Non displaced PMI, RRR, no murmurs, No S3, S4, no rubs.
Lungs: Scattered rhonchi
Extremities: No clubbing, cyanosis or edema bilaterally.
Neuro: Grossly nonfocal, awake, alert and oriented x3.
She remains on 1 L of oxygen. Difficult to determine whether this is due to COPD or CHF but will continue with diuresis given stable renal function. Will give another dose of 20 mg IV Lasix.
Original Note:
Today's Communication / Plan
-
Lasix 20 mg IV x1 this afternoon
51 min face to face and coordination of care
Impression / Plan
-
PCP: Dr. Mccormack
Cardiology: Dr. BASSEM Pearson
Impression:
Admitted with SOB/hypoxia
RLL PNA
Acute on chronic HFpEF
Paroxysmal Afib
Moderate MR s/p MitraClip at [place] 10/2022
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
COPD with moderate PHTN
HTN
Echo 09/14/24: EF 50%, severe biatrial dilatation, s/p MitraClip with at least moderate MR and mean mitral gradient 2 mmHg, no AI, mod to sev TR and PAP 51 mmHg
Plan:
-Patient admitted with multifactorial SOB from PNA and possible acute HFpEF.
-Remains on doxycycline and Rocephin
-Outpatient dose of prednisone 5 mg daily has been continued for chronic COPD, no suspected exacerbation
-Patient was given Lasix 20 mg IV x1 on 11/25/24 and again 11/26/24. Weight is down 2 lbs this admission and weight is below any previous dry weight on record. Patient was not taking a daily diuretic prior to admission.
-Cre stable at 0.6. Patient developed ADAIR with attempts at more aggressive IV diuresis, Lasix 40 mg IV BID, back during her 09/2024 admission.
-Will give additional Lasix 20 mg IV 11/26/24 PM and reassess weight, Cre and oxygenation in the AM.
-Patient was taking Lasix 20 mg daily PRN weight gain prior to admission and this was once or twice a month. At last office visit 10/12/24 there was concern that weight was up 6-7 lbs and that patient was perhaps not taking Lasix often enough.
Consider standing once a week dose moving forwards or even MWF rather than PRN alone.
-Outpatient dose of Toprol XL 25 mg daily was stopped due to bradycardia.
-Outpatient dose of Cardizem CD 120 mg daily has been continued.
-Not chronically on LETICIA/ARB/aldosterone antagonist for unclear reasons.
-SGLT2 is not cost prohibitive, would consider discharging on Farxiga 10 mg daily (brand name is supposedly cheaper than generic per case
-EF 50% by echo 09/14/24
-Patient with known paroxysmal Afib, but in SR on tele reviewed by me.
-Cont Eliquis 2.5 mg BID (age 84, Cre 0.6 and wt 44.8 kg)
-Patient has a h/o CVA due to air embolus at the time of her initial attempt at MitraCl at [place] in 08/2022, at that time she was treated with hyperbaric oxygen therapy and on reattempt at [facility] 10/2022 it was successful and without incident.
Progress Note - Credit Analyst
Subjective
Date of Service: November 26, 2024
Thinks breathing is a bit better
Objective
Labs:
11/26/24 07:35
11/26/24 07:35
Labs
Hgb 10.6 g/dL (12.0-16.0) L 11/26/24 07:35
Hct 33.0 % (37.0-47.0) L 11/26/24 07:35
Plt Count 373 10^3/uL (130-400) 11/26/24 07:35
Sodium 138 mmol/L (135-145) 11/26/24 07:35
Potassium 4.2 mmol/L (3.5-5.1) 11/26/24 07:35
BUN 25 mg/dl (7-17) H 11/26/24 07:35
Creatinine 0.6 mg/dL (0.6-1.0) 11/26/24 07:35
Glucose 97 mg/dl (70-99) 11/26/24 07:35
Troponins
11/24/24
17:42
Troponin I 0.015
Vital Signs and I&O:
Vital Signs
Temp Pulse Resp BP Pulse Ox
98.4 F 89 16 121/75 97
11/26/24 11:07 11/26/24 11:17 11/26/24 11:17 11/26/24 11:07 11/26/24 11:17
Vital Signs
Temp Pulse Resp BP Pulse Ox
98.4 F 89 16 121/75 97
11/26/24 11:07 11/26/24 11:17 11/26/24 11:17 11/26/24 11:07 11/26/24 11:17
Physical Exam
Physical Exam
GEN: AAOx3, tremor
HEENT: EOMI, MMM
LUNGS: 1 L NC. Productive cough
CV: SR on tele
ABD: ND
EXT: No edema B/L
NEURO: Gross non-focal
SKIN: No rash
--- NOTE | 2024-11-26 14:13 | W.PN.HOSP.TC ---
Today's Communication/Plan
-
can cont empiric abx for now
iv lasix again
wean o2
duonebs
Assessment / Plan
Assessment / Plan
#Acute on chronic hypoxemic respiratory failure
#RLL pneumonia
#COPD without signs of exacerbation
#Acute HFpEF
-Chronically uses 2 L of oxygen nightly; history of COPD on Trelegy, chronic prednisone, and azithromycin
-initial requirement of 4L, now on 1L
- empiric abx - will treat for 5-7 days
-cont iv lasix today
-cont pred, no need for escalating dose at this time
-duonebs
-wean o2; goal >88-92%
# Tachybradycardia syndrome
� Discontinued metoprolol
� Continue diltiazem
� Continue to monitor on telemetry
#New normocytic anemia
-Presented with hemoglobin of 10.9, MCV 94.8; previous hemoglobin baseline between 12 and 13
-Iron panel with mixed picture, low TIBC consistent with chronic disease but ferritin lower than expected
-Question if she has underlying gastrointestinal bleeding
-Will start oral ferrous sulfate daily
-Trend CBC while here, no obvious blood loss
-OP follow-up for colonoscopy if overdue
#Paroxysmal AF
-Nonvalvular
-cont ditiazem, eliquis
DVT prophylaxis: Home Eliquis
Diet: 2 g sodium restricted
CODE STATUS: DNR
Anticipated Discharge: 24 - 48 hours
Subjective/Interval History
-
Date of Service: November 26, 2024
Patient feels better, on 1 L
Objective Data
-
Labs:
Laboratory Results
11/26/24
07:35
WBC 11.1 H
Hgb 10.6 L
Hct 33.0 L
Plt Count 373
Sodium 138
Potassium 4.2
Chloride 103
Carbon Dioxide 28
BUN 25 H
Creatinine 0.6
Glucose 97
Calcium 9.7
Vital Signs:
Vital Signs
Temp Pulse Resp BP Pulse Ox
98.4 F 89 16 121/75 97
11/26/24 11:07 11/26/24 11:17 11/26/24 11:17 11/26/24 11:07 11/26/24 11:17
Review of Systems
-
History Source: Patient
All other systems: Not reviewed unless documented
Physical Exam
-
General: Well Developed, No Apparent Distress and Comfortable
HEENT: Normocephalic, Atraumatic, Moist Mucous Membranes and Anicteric
Respiratory: Clear to Auscultation and Non Labored Respirations; Negative Wheezes, Rales, Rhonchi or Accessory Resp Muscle Use
Cardiac: Regular Rhythm and S1/S2; Negative Murmur, Rub, JVD or Gallop
GI: Soft, Nontender, Nondistended and Normal Bowel Sounds
Musculoskeletal: No Clubbing, No Cyanosis and No Edema
Skin: Warm, Dry and Normal Turgor; Negative Rash
Neuro: AO x 3 and Nonfocal/Grossly Intact
Psych: Calm
Data Reviewed
-
Medical Tests (Nuc Med, Echo etc): Report Reviewed by me (Discussed telemetry readings with geographic information systems engineer)
Labs: Labs Reviewed by me and Discussed with Patient
[2024-11-26 14:47] VITALS: BMI 19.8
[2024-11-26 15:58] VITALS: BP 114/68
[2024-11-26 19:00] VITALS: BP 153/77
[2024-11-26] MEDS: STERILE WATER FOR INJECTION 10 ML IV ×2 (21:41)
[2024-11-26] MEDS: ROCEPHIN 1000 MG IV (21:42)
[2024-11-26 23:00] VITALS: BP 129/71
[2024-11-27 03:11] VITALS: BP 131/78
[2024-11-27 06:00] VITALS: BMI 19.5
[2024-11-27 06:37] VITALS: BP 117/61; PULSE 80
[2024-11-27] MEDS: DUONEB 3 ML INH ×2 (07:09→11:12)
[2024-11-27] MEDS: PULMICORT 0.5 MG INH (07:10)
[2024-11-27 07:55] VITALS: BP 140/77
[2024-11-27 07:58] LABS: Hematocrit 33.5 % (37.0-47.0); Hemoglobin 10.6 g/dL (12.0-16.0); Mean Corp Hgb Conc. 31.6 g/dL (33.0-37.0); Mean Corpuscular Hgb 30.2 pg (27.0-31.0); Mean Corpuscular Volume 95.4 fL (81.0-99.0); Platelet Count 379 10^3/uL (130-400); Red Blood Cell Count 3.51 10^6/uL (4.20-5.40); Red Cell Dist. Width 14.5 % (11.5-14.5); White Blood Cell Count 10.2 10^3/uL (4.8-10.8)
[2024-11-27 08:34] LABS: Blood Urea Nitrogen 29 mg/dl (7-17); Calcium 9.5 mg/dl (8.4-10.2); Carbon Dioxide 28 mmol/L (22-30); Chloride 101 mmol/L (98-107); Estimated Creatinine Clearance 40 ml/min; Glucose 72 mg/dl (70-99); Potassium 3.4 mmol/L (3.5-5.1); Sodium 136 mmol/L (135-145); eGFR > 60.00
[2024-11-27] MEDS: MUCINEX 600 MG PO (08:38)
[2024-11-27] MEDS: VIBRAMYCIN 100 MG PO (08:38)
[2024-11-27] MEDS: ELIQUIS 2.5 MG PO (08:38)
[2024-11-27] MEDS: CARDIZEM CD 120 MG PO (08:38)
[2024-11-27] MEDS: FEOSOL 325 MG PO (08:39)
[2024-11-27] MEDS: DELTASONE 5 MG PO (08:39)
[2024-11-27 11:55] VITALS: BP 123/79
--- NOTE | 2024-11-27 11:56 | CM ---
Chart reviewed for d/c planning. Pt is stable for d/c today
Met w/ pt bedside w/ spouse who is agreeable for d/c
IMM reviewed, pt given copy, copy placed on chart
No CM needs identified at this time
Plan: Home; no needs
--- NOTE | 2024-11-27 12:18 | W.PN.CARDCBS ---
Addendum entered and electronically signed by Kennedy Honeycutt MD 11/27/24 12:38:
I saw and examined the patient.
The HOT ROLL LAMINATOR or PA's note was reviewed and I agree with the note.
Comment: General: Well developed, well nourished in NAD.
Neck: Supple, no JVD, HJR, carotids +2 B/L, no bruits bilaterally.
Heart: Non displaced PMI, RRR, no murmurs, No S3, S4, no rubs.
Lungs: Scattered rhonchi throughout
Extremities: No clubbing, cyanosis or edema bilaterally.
Neuro: Grossly nonfocal, awake, alert and oriented x3.
She appears comfortable on room air. Stable cardiology status for discharge. Recommend Lasix 20 mg daily at home. Will arrange follow-up.
Original Note:
Today's Communication / Plan
-
Toprol XL stopped this admission due to bradycardia
Cont Cardizem CD
Recommend Lasix 20 mg PO daily at home, was on PRN dosing prior to admission
Impression / Plan
-
PCP: Dr. Mccormack
Cardiology: Dr. BASSEM Pearson
Impression:
Admitted with SOB/hypoxia
RLL PNA
Acute on chronic HFpEF
Paroxysmal Afib
s/p successful NOVA/CV 09/19/24
Chronic Eliquis OAC
Moderate MR s/p MitraClip at [place] 10/2022
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
COPD with moderate PHTN
HTN
Echo 09/14/24: EF 50%, severe biatrial dilatation, s/p MitraClip with at least moderate MR and mean mitral gradient 2 mmHg, no AI, mod to sev TR and PAP 51 mmHg
Plan:
-Weight is down another 2 lbs overnight with additional Lasix 20 mg IV 11/26/24 evening.
-Recommend Lasix 20 mg daily upon d/c to home. Patient was taking Lasix PRN prior to admission and was not taking very often, maybe twice a month.
-Check outpatient labs in 2 weeks.
-Outpatient dose of Toprol XL 25 mg daily was stopped due to bradycardia.
-Outpatient dose of Cardizem CD 120 mg daily has been continued.
-Not chronically on LETICIA/ARB/aldosterone antagonist for unclear reasons.
-SGLT2 is not cost prohibitive, would consider discharging on Farxiga 10 mg daily (brand name is supposedly cheaper than generic per case
-EF 50% by echo 09/14/24
-Patient with known paroxysmal Afib, but in SR on tele reviewed by me.
-Cont Eliquis 2.5 mg BID (age 84, Cre 0.6 and wt 44.8 kg)
-Patient has a h/o CVA due to air embolus at the time of her initial attempt at MitraClip at [place] in 08/2022, at that time she was treated with hyperbaric oxygen therapy and on reattempt at [facility] 10/2022 it was successful and without incident.
-Patient admitted with multifactorial SOB from PNA and possible acute HFpEF. Was on doxycycline and Rocephin this admission.
-Outpatient dose of prednisone 5 mg daily has been continued for chronic COPD, no suspected exacerbation
-Likely d/c to home 11/27/24 with follow up arranged. Case mgmt consult to arrange for VN
Progress Note - [employer]
Subjective
Date of Service: November 27, 2024
Feeling overall better compared to admission
Objective
Labs:
11/27/24 07:19
11/27/24 07:19
Labs
Hgb 10.6 g/dL (12.0-16.0) L 11/27/24 07:19
Hct 33.5 % (37.0-47.0) L 11/27/24 07:19
Plt Count 379 10^3/uL (130-400) 11/27/24 07:19
Sodium 136 mmol/L (135-145) 11/27/24 07:19
Potassium 3.4 mmol/L (3.5-5.1) L 11/27/24 07:19
BUN 29 mg/dl (7-17) H 11/27/24 07:19
Creatinine 0.7 mg/dL (0.6-1.0) 11/27/24 07:19
Glucose 72 mg/dl (70-99) 11/27/24 07:19
Troponins
11/24/24
17:42
Troponin I 0.015
Vital Signs and I&O:
Vital Signs
Temp Pulse Resp BP Pulse Ox
97.9 F 67 16 123/79 96
11/27/24 11:55 11/27/24 11:55 11/27/24 11:55 11/27/24 11:55 11/27/24 11:55
Vital Signs
Temp Pulse Resp BP Pulse Ox
97.9 F 67 16 123/79 96
11/27/24 11:55 11/27/24 11:55 11/27/24 11:55 11/27/24 11:55 11/27/24 11:55
Intake & Output
11/25/24 11/26/24 11/27/24 11/28/24
06:59 06:59 06:59 06:59
Intake Total 660 / 660
Output Total 1900 / 1900
Balance -1240 / -1240
Physical Exam
Physical Exam
GEN: AAOx3, tremor
HEENT: EOMI, MMM
LUNGS: RA. No audible wheeze
CV: SR on tele
ABD: ND
EXT: No edema B/L
NEURO: Gross non-focal
SKIN: No rash
--- NOTE | 2024-11-27 12:55 | W.PN.HOSP.TC ---
Today's Communication/Plan
-
Abx to complete 5 day course
lasix 20mg daily
k repletion
f/u cbc in 1 week
bmp in 1-2 weks
Assessment / Plan
Assessment / Plan
#Acute on chronic hypoxemic respiratory failure
#RLL pneumonia
#COPD without signs of exacerbation
#Acute HFpEF
-Chronically uses 2 L of oxygen nightly; history of COPD on Trelegy, chronic prednisone, and azithromycin
-initial requirement of 4L, now on 1L
- empiric abx - will treat for 5 days; dc on cefdinir and doxycyline to complete 5 day course tota; then can continue back on azithromycin
-s/p iv lasix; swithc to 20mg po lasix
-cont pred, no need for escalating dose at this time
-duonebs
-wean o2; goal >88-92%
# Tachybradycardia syndrome
� Discontinued metoprolol
� Continue diltiazem
� Continue to monitor on telemetry
#New normocytic anemia
-Presented with hemoglobin of 10.9, MCV 94.8; previous hemoglobin baseline between 12 and 13
-Iron panel with mixed picture, low TIBC consistent with chronic disease but ferritin lower than expected
-Question if she has underlying gastrointestinal bleeding
-Will start oral ferrous sulfate daily
-Trend CBC while here, no obvious blood loss
-OP follow-up for colonoscopy if overdue
##hypokalemia
-monitor and replete
#Paroxysmal AF
-Nonvalvular
-cont ditiazem, eliquis
DVT prophylaxis: Home Eliquis
Diet: 2 g sodium restricted
CODE STATUS: DNR
More than 30 minutes spent in discharge including
Final examination of the patient
Summarizing hospital stay
Instructions for continuing care to all relevant caregivers
Preparation of discharge records, prescriptions, and referral forms
Total time spent (37 in minutes):
Anticipated Discharge: Today
Subjective/Interval History
-
Date of Service: November 27, 2024
feels better off o2, ambulating on RA
Objective Data
-
Labs:
Laboratory Results
11/27/24
07:19
WBC 10.2
Hgb 10.6 L
Hct 33.5 L
Plt Count 379
Sodium 136
Potassium 3.4 L
Chloride 101
Carbon Dioxide 28
BUN 29 H
Creatinine 0.7
Glucose 72
Calcium 9.5
Vital Signs:
Vital Signs
Temp Pulse Resp BP Pulse Ox
97.9 F 67 16 123/79 96
11/27/24 11:55 11/27/24 11:55 11/27/24 11:55 11/27/24 11:55 11/27/24 11:55
I&O
11/26/24 11/27/24 11/28/24
06:59 06:59 06:59
Intake Total 660 / 660
Output Total 1900 / 190
Balance -1240 / -1240
Review of Systems
-
History Source: Patient
All other systems: Not reviewed unless documented
Physical Exam
-
General: Well Developed, No Apparent Distress and Comfortable
HEENT: Normocephalic, Atraumatic, Moist Mucous Membranes and Anicteric
Respiratory: Clear to Auscultation and Non Labored Respirations; Negative Wheezes, Rales, Rhonchi or Accessory Resp Muscle Use
Cardiac: Regular Rhythm and S1/S2; Negative Murmur, Rub, JVD or Gallop
GI: Soft, Nontender, Nondistended and Normal Bowel Sounds
Musculoskeletal: No Clubbing, No Cyanosis and No Edema
Skin: Warm, Dry and Normal Turgor; Negative Rash
Neuro: AO x 3 and Nonfocal/Grossly Intact
Psych: Calm
Data Reviewed
-
Diagnostic Radiology: Report Reviewed by me
Labs: Labs Reviewed by me and Discussed with Patient
--- NOTE | 2024-11-27 13:00 | W.DS.TRANS ---
DC Summary - Vocational Education Professional
-
Discharge Instructions:
Sleep Apnea Risk Low
Discharge Diagnosis/Procedures #Acute on chronic hypoxemic respiratory failure
#RLL pneumonia
#COPD without signs of exacerbation
#Acute HFpEF
# Tachybradycardia syndrome
Diet Restrict fluids to 64 oz,Low Cholesterol,Low Fat
Activity As tolerated
Bathing Restrictions None
Blood Work cbc in 1 week with pcp; f/u bmp with cardiology
within 1- 2 weeks
Specialty Instructions Weigh Daily
Instructions: *DCA Heart Failure Instructions
Stand-Alone Forms:
Changes to Home Medications: Yes
Discharge Medications:
DC Medications w/original date entered in [employer]
azithromycin 250 mg tablet 250 mg PO MOWEFR Infection 03/02/22
albuterol sulfate 90 mcg/actuation aerosol inhaler 2 inh inhalation R Q6HPRN PRN sob 04/21/22
ipratropium 0.5 mg-albuterol 3 mg (2.5 mg base)/3 mL nebulization soln 3 ml inhalation R DAILY Lung/Breathing Issues 04/21/22
budesonide 0.5 mg/2 mL suspension for nebulization 0.5 mg inhalation R BID Lung/Breathing Issues 09/17/24
apixaban 2.5 mg tablet (Eliquis) 2.5 mg PO BID Blood clot prevention/tx #60 tabs 09/20/24
diltiazem HCl 120 mg capsule,extended release 24 hr 120 mg PO DAILY Arrhythmia #30 caps 09/20/24
acetaminophen 325 mg tablet (Tylenol) 650 mg PO Q6HPRN PRN headache 11/24/24
fluticasone fur. 200 mcg-umeclid 62.5 mcg-vilant 25 mcg inhalat.powder (Trelegy Ellipta) 1 inh inhalation R DAILY 11/24/24
prednisone 5 mg tablet 5 mg PO DAILY 11/24/24
cefdinir 300 mg capsule 300 mg PO Q12H 3 days #6 caps 11/27/24
doxycycline hyclate 100 mg capsule 100 mg PO BID 2 days #4 caps 11/27/24
ferrous sulfate 325 mg (65 mg iron) tablet (FeroSul) 325 mg PO DAILY 30 days #30 tabs 11/27/24
furosemide 20 mg tablet 20 mg PO DAILY 30 days #30 tabs 11/27/24
ipratropium 0.5 mg-albuterol 3 mg (2.5 mg base)/3 mL nebulization soln 3 ml inhalation R Q4HPRN PRN shortness of breath/wheezing #180 mL 11/27/24
ipratropium 0.5 mg-albuterol 3 mg (2.5 mg base)/3 mL nebulization soln 3 ml inhalation R QID #180 mL 11/27/24
Home Medication Changes
cefdinir 300 mg capsule 300 mg PO Q12H 3 days #6 caps 11/27/24
doxycycline hyclate 100 mg capsule 100 mg PO BID 2 days #4 caps 11/27/24
ferrous sulfate 325 mg (65 mg iron) tablet (FeroSul) 325 mg PO DAILY 30 days #30 tabs 11/27/24
furosemide 20 mg tablet 20 mg PO DAILY 30 days #30 tabs 11/27/24
ipratropium 0.5 mg-albuterol 3 mg (2.5 mg base)/3 mL nebulization soln 3 ml inhalation R Q4HPRN PRN shortness of breath/wheezing #180 mL 11/27/24
ipratropium 0.5 mg-albuterol 3 mg (2.5 mg base)/3 mL nebulization soln 3 ml inhalation R QID #180 mL 11/27/24
Pending Results: No
[2024-11-27] MEDS: KCL ELIXIR 40 MEQ PO (13:05)
--- NOTE | 2024-11-28 10:24 | W.HF.CON ---
Heart Failure
- LV Function
Left ventricular function study result: LV Ejection fraction >/= 50%
Ejection Fraction Percentage: 50
- ARNI
Patient already on ARNI: No
Heart Failure ARNI Not Indicated: LV Ejection Fraction >/= 40%
- ACEI/ARB
Patient already on ACEI/ARB: No
Heart Failure ACEI/ARB Not Indicated: LV Ejection Fraction > 40%
- Beta Alexis
Patient already on Evidence Based Beta Alexis: No
Heart Failure Evidence Based Beta Alexis Not Indicated: LV Ejection Fraction > 40%
- Mineralocorticord Receptor Antagonist
Patient already on MRA: No
Heart Failure MRA Not Indicated: LV Ejection Fraction > 40%
- SGLT-2 Inhibitor
Patient already on SGLT-2 Inhibitor: No
Heart Failure SGLT-2 Inhibitor Not Indicated: LV Ejection Fraction >40%
- Afib Anticoagulation
Patient already on Anticoagulation for Afib: Yes
- NYHA CHF Classification
NYHA CHF Classification Level: Class III - Symptoms w/ min exertion, interferes w/ nml daily activity
- ACC/AHA Stage
ACC/AHA Stage: Stage C: Symptomatic Heart Failure
== END 2024-11-27 14:27 | disposition home or self-care (01) | DRG 193 ==
LOC: 4 EAST ACU 20:12
PROVIDERS: Internal Medicine; Physician Assistant Medical; ADMITTING PHYSICIAN Hospitalist; ATTENDING PHYSICIAN Internal Medicine; CONSULT PHYSICIAN Internal Medicine Cardiovascular Disease; EMERGENCY PHYSICIAN Emergency Medicine; FAMILY PHYSICIAN Family Medicine
DX: J18.9 Pneumonia, unspecified organism (principal); I50.33 Acute on chronic diastolic (congestive) heart failure; J96.21 Acute and chronic respiratory failure with hypoxia; J44.0 Chronic obstructive pulmonary disease with (acute) lower respiratory infection; I11.0 Hypertensive heart disease with heart failure; Z66 Do not resuscitate; I49.5 Sick sinus syndrome; I48.0 Paroxysmal atrial fibrillation; D64.9 Anemia, unspecified; E87.6 Hypokalemia; Z99.81 Dependence on supplemental oxygen; Z87.891 Personal history of nicotine dependence; Z96.641 Presence of right artificial hip joint; Z86.73 Personal history of transient ischemic attack (TIA), and cerebral infarction without residual deficits; Z79.51 Long term (current) use of inhaled steroids; Z79.01 Long term (current) use of anticoagulants; Z79.52 Long term (current) use of systemic steroids; Z11.52 Encounter for screening for COVID-19
CPT/HCPCS: 71046; 80048; 82607; 82728; 82746; 83540; 83550; 83735; 83880; 84484; 85025; 85027; 87502; 87807; 87811; 93005; 94640; 96365; 96375; 99285